=== PATIENT | male | born 1930 | race Two or more races ===

== ENCOUNTER → 2016-02-28 | Outpatient (CLI) | payer MEDICARE, OTHER ==
[~2016-02-28] MED LIST: ASPI81TA27 PO; CLOP75TA28 PO; DUTA0.5C11 PO; OLMETAB9 PO
[2016-02-28 10:15] VITALS: BP 148/84
[2016-02-28 14:44] LABS: Basophils # (auto) 0.1 uL; Basophils % (auto) 0.9 % (0.0-2.0); Eosinophils # (auto) 0.3 uL; Eosinophils % (auto) 4.3 % (0.0-7.0); Hematocrit 42.4 % (41.0-53.0); Hemoglobin 13.6 g/dL (13.5-17.5); Lymphocytes # (auto) 1.4 uL; Mean Corpuscular Hemoglobin 30.2 pg (28.0-32.0); Mean Corpuscular Hgb Conc. 32.2 g/dL (32.0-36.0); Mean Corpuscular Volume 93.7 fL (80.0-100.0); Mean Platelet Volume 10.1 fL (7.4-10.4); Monocytes # (auto) 0.6 uL; Monocytes % (auto) 8.4 % (0.0-12.0); Neutrophils # (auto) 4.3 uL; Neutrophils % (auto) 64.4 % (37.0-80.0); Platelet Count (auto) 215 10^3/uL (140-450); Red Cell Distribution Width 12.7 % (11.6-16.0); White Blood Cell 6.6 10^3/uL (4.4-10.8)
[2016-02-28 14:50] LABS: Partial Thromboplastin Time 27.1 sec (22.64-33.71); Prothrombin Time 10.3 sec (9.37-12.3)
[2016-02-28 15:12] LABS: BUN/Creatinine Ratio 19.4; Potassium 4.9 mmol/L (3.5-5.1)
== END | disposition home or self-care (01) ==
LOC: Rad HDHVI 09:58
PROVIDERS: ATTEND Internal Medicine Cardiovascular Disease
DX: I10 Essential (primary) hypertension (principal); D64.9 Anemia, unspecified; R79.1 Abnormal coagulation profile
CPT/HCPCS: 36415; 71020; 80048; 85025; 85610; 85730; G0463

== ENCOUNTER 2016-03-02 06:44 | Day surgery (SDC) | payer MEDICARE, OTHER ==
[2016-03-02] MEDS ORDERED: LIDOCAINE 2%HCL (LOCAL ANESTH.) INJ 20ML MDV ONE (07:19)
[2016-03-02] MEDS ORDERED: IOHEXOL 350 MG/ML 100ML IJ ONE (07:19)
[2016-03-02] MEDS ORDERED: fentaNYL CITRATE 100 MCG/2 ML VL ONE (08:48)
[2016-03-02] MEDS ORDERED: ANGIOMAX 250 MG VIAL IV ONE (08:48)
[2016-03-02] MEDS ORDERED: EPTIFIBATIDE INJ (2MG/ML) 10ML VIAL IV ONE (08:49)
[2016-03-02] MEDS ORDERED: MIDAZOLAM HCL 1MG/1ML-2 ML VIAL ONE (08:49)
[2016-03-02] MEDS ORDERED: SODIUM CHL 0.9% 0 ML ONE (08:49)
== END 2016-03-02 11:55 | disposition home or self-care (01) ==
LOC: CATH 06:44
PROVIDERS: ATTEND Internal Medicine Cardiovascular Disease
DX: R94.39 Abnormal result of other cardiovascular function study (principal); I10 Essential (primary) hypertension; E78.5 Hyperlipidemia, unspecified; J44.9 Chronic obstructive pulmonary disease, unspecified; Z98.62 Peripheral vascular angioplasty status
CPT/HCPCS: 93458; C1760; C1894; J1644; J2250; J3010; J7030; Q9967; 99152

== ENCOUNTER → 2016-05-17 | Outpatient (CLI) | payer MEDICARE, OTHER ==
[~2016-05-17] MED LIST changes: +TESTOSTERONE CYPIONATE 100 MG/0.5ML 10mLMDV HEART CENTER IM ONE; +TESTOSTERONE CYPIONATE 200 MG/ML 1ML VIAL IM ONE
[2016-05-17 11:30] VITALS: BP 129/77
[2016-05-17 12:00] VITALS: BP 150/80
== END | disposition home or self-care (01) ==
LOC: CHF HDHVI 11:24
PROVIDERS: ATTEND Internal Medicine Cardiovascular Disease
DX: E29.1 Testicular hypofunction (principal); I11.0 Hypertensive heart disease with heart failure; I50.9 Heart failure, unspecified; R07.9 Chest pain, unspecified; E78.5 Hyperlipidemia, unspecified; E64.9 Sequelae of unspecified nutritional deficiency
CPT/HCPCS: 96372; G0463; J1071

== ENCOUNTER → 2016-07-04 | Outpatient (CLI) | payer MEDICARE, OTHER ==
[~2016-07-04] MED LIST changes: -TESTOSTERONE CYPIONATE 100 MG/0.5ML 10mLMDV HEART CENTER IM ONE; -TESTOSTERONE CYPIONATE 200 MG/ML 1ML VIAL IM ONE
[2016-07-04 14:00] VITALS: BP 143/68
[2016-07-04 14:45] VITALS: BP 140/65
[2016-07-04 16:48] LABS: Urine Bilirubin Negative (Negative); Urine Blood Negative /uL (Negative); Urine Color Yellow (Yellow); Urine Glucose Normal (Normal); Urine Ketone Negative (Negative); Urine Nitrite Negative (Negative); Urine Urobilinogen Normal (Negative)
[2016-07-04 17:02] LABS: Basophils # (auto) 0.1 uL; Eosinophils # (auto) 0.4 uL; Eosinophils % (auto) 5.5 % (0.0-7.0); Hematocrit 40.4 % (41.0-53.0); Hemoglobin 13.8 g/dL (13.5-17.5); Lymphocytes # (auto) 1.8 uL; Lymphocytes % (auto) 25.5 % (10.0-50.0); Mean Corpuscular Hemoglobin 31.5 pg (28.0-32.0); Mean Corpuscular Hgb Conc. 34.2 g/dL (32.0-36.0); Mean Corpuscular Volume 92.3 fL (80.0-100.0); Mean Platelet Volume 9.7 fL (7.4-10.4); Monocytes # (auto) 0.7 uL; Monocytes % (auto) 10.2 % (0.0-12.0); Neutrophils # (auto) 4.1 uL; Neutrophils % (auto) 57.8 % (37.0-80.0); Platelet Count (auto) 246 10^3/uL (140-450); Red Cell Distribution Width 13.6 % (11.6-16.0); White Blood Cell 7.1 10^3/uL (4.4-10.8)
[2016-07-04 17:04] LABS: INR 0.94 (0.9-1.15); Partial Thromboplastin Time 26.8 sec (22.64-33.71); Prothrombin Time 10.1 sec (9.37-12.3)
[2016-07-04 17:16] LABS: Albumin 3.6 g/dL (3.4-5.0); BUN/Creatinine Ratio 16.7; Bilirubin, Direct 0.1 mg/dL (0-0.2); Bilirubin, Total 0.4 mg/dL (0.2-1.0); Calcium 9.2 mg/dL (8.5-10.1); Magnesium 2.3 mg/dL (1.6-2.6); Potassium 4.4 mmol/L (3.5-5.1); Total Protein 7.3 g/dL (6.4-8.2)
== END | disposition home or self-care (01) ==
LOC: Rad HDHVI 13:27
PROVIDERS: ATTEND Internal Medicine Cardiovascular Disease
DX: I10 Essential (primary) hypertension (principal); K74.1 Hepatic sclerosis; E11.9 Type 2 diabetes mellitus without complications; R53.81 Other malaise; R97.20 Elevated prostate specific antigen [PSA]; E03.9 Hypothyroidism, unspecified; D64.9 Anemia, unspecified; E55.9 Vitamin D deficiency, unspecified; R79.1 Abnormal coagulation profile; N39.0 Urinary tract infection, site not specified
CPT/HCPCS: 36415; 71020; 80048; 80061; 80076; 81003; 82306; 83036; 83735; 84153; 84403; 84439; 84443; 85025; 85610; 85730; 93005; 93306; G0463

== ENCOUNTER → 2016-08-14 | Outpatient (CLI) | payer MEDICARE ==
[2016-08-14 16:22] LABS: Basophils # (auto) 0.1 uL; CONDITION Y; Eosinophils # (auto) 0.4 uL; Hematocrit 40.7 % (41.0-53.0); Hemoglobin 13.5 g/dL (13.5-17.5); Lymphocytes # (auto) 1.4 uL; Lymphocytes % (auto) 22.9 % (10.0-50.0); Mean Corpuscular Hemoglobin 31.4 pg (28.0-32.0); Mean Corpuscular Hgb Conc. 33.3 g/dL (32.0-36.0); Mean Corpuscular Volume 94.3 fL (80.0-100.0); Monocytes # (auto) 0.6 uL; Monocytes % (auto) 10.2 % (0.0-12.0); Neutrophils # (auto) 3.7 uL; Neutrophils % (auto) 59.9 % (37.0-80.0); Platelet Count (auto) 232 10^3/uL (140-450); White Blood Cell 6.2 10^3/uL (4.4-10.8)
[2016-08-14 16:36] LABS: BUN/Creatinine Ratio 20.6; Calcium 8.6 mg/dL (8.5-10.1); Potassium 5.3 mmol/L (3.5-5.1)
[2016-08-14 16:42] LABS: Urine Bilirubin Negative (Negative); Urine Blood Negative /uL (Negative); Urine Color Yellow (Yellow); Urine Glucose Normal (Normal); Urine Ketone Negative (Negative); Urine Nitrite Negative (Negative); Urine RBC <1 /hpf (0 - 3); Urine Urobilinogen Normal (Negative); Urine pH 5.5 (5.0-8.0)
[2016-08-14 17:04] LABS: INR 0.94 (0.9-1.15); Partial Thromboplastin Time 27.4 sec (22.64-33.71); Prothrombin Time 10.2 sec (9.37-12.3)
== END | disposition home or self-care (01) ==
LOC: CHF HDHVI 11:14
PROVIDERS: ATTEND Internal Medicine Cardiovascular Disease
DX: Z01.818 Encounter for other preprocedural examination (principal); D53.8 Other specified nutritional anemias; N39.0 Urinary tract infection, site not specified; M79.89 Other specified soft tissue disorders
CPT/HCPCS: 36415; 80048; 81001; 85025; 85610; 85730; 87086

== ENCOUNTER → 2016-10-12 | Outpatient (CLI) | payer MEDICARE ==
[~2016-10-12] MED LIST changes: +TESTOSTERONE CYPIONATE 200 MG/ML 1ML VIAL IM ONE
[2016-10-12 11:30] VITALS: BP 128/64
[2016-10-12 11:45] VITALS: BP 134/64
== END | disposition home or self-care (01) ==
LOC: CHF HDHVI 11:23
PROVIDERS: ATTEND Internal Medicine Cardiovascular Disease
DX: E29.1 Testicular hypofunction (principal)
CPT/HCPCS: 96372; G0463; J1071

== ENCOUNTER → 2016-10-30 | Outpatient (CLI) | payer MEDICARE ==
[~2016-10-30] MED LIST changes: -TESTOSTERONE CYPIONATE 200 MG/ML 1ML VIAL IM ONE
[2016-10-30 10:02] LABS: Basophils # (auto) 0.1 uL; Basophils % (auto) 0.9 % (0.0-2.0); CONDITION Y; Eosinophils # (auto) 0.3 uL; Eosinophils % (auto) 4.4 % (0.0-7.0); Lymphocytes # (auto) 1.7 uL; Lymphocytes % (auto) 24.7 % (10.0-50.0); Mean Corpuscular Hemoglobin 31.6 pg (28.0-32.0); Mean Corpuscular Hgb Conc. 34.2 g/dL (32.0-36.0); Mean Corpuscular Volume 92.6 fL (80.0-100.0); Mean Platelet Volume 9.1 fL (7.4-10.4); Monocytes # (auto) 0.7 uL; Monocytes % (auto) 10.7 % (0.0-12.0); Neutrophils % (auto) 59.3 % (37.0-80.0); Platelet Count (auto) 239 10^3/uL (140-450); Red Cell Distribution Width 13.8 % (11.6-16.0); White Blood Cell 6.7 10^3/uL (4.4-10.8)
[2016-10-30 11:05] LABS: Albumin 3.6 g/dL (3.4-5.0); BUN/Creatinine Ratio 19.6; Bilirubin, Total 0.5 mg/dL (0.2-1.0); Calcium 8.8 mg/dL (8.5-10.1); Potassium 4.3 mmol/L (3.5-5.1); Total Protein 7.4 g/dL (6.4-8.2)
== END | disposition home or self-care (01) ==
LOC: LAB 09:37
DX: D64.9 Anemia, unspecified (principal); M06.9 Rheumatoid arthritis, unspecified; M25.50 Pain in unspecified joint; I10 Essential (primary) hypertension; Z79.899 Other long term (current) drug therapy
CPT/HCPCS: 36415; 80053; 85025; 85652; 86141

== ENCOUNTER → 2017-03-08 | Outpatient (CLI) | payer MEDICARE | END | disposition home or self-care (01) | LOC: Rad HDHVI 10:02 | PROVIDERS: ATTEND Internal Medicine Cardiovascular Disease | DX: I10 Essential (primary) hypertension (principal); E78.00 Pure hypercholesterolemia, unspecified | CPT/HCPCS: 93306 ==

== ENCOUNTER → 2017-03-14 | Outpatient (CLI) | payer MEDICARE ==
[~2017-03-14] VITALS: Ht 30.5 cm; Wt 0.5 kg
[~2017-03-14] MED LIST changes: +ADENOSINE 82 MG in GIVE UN-DILUTED 0 ML IV ONE; +ADENOSINE 90 MG/30 ML INJ IV ONE
[2017-03-14 12:29] LABS: Basophils # (auto) 0.1 uL; Basophils % (auto) 1.2 % (0.0-2.0); Eosinophils # (auto) 0.3 uL; Eosinophils % (auto) 6.4 % (0.0-7.0); Hematocrit 39.5 % (41.0-53.0); Hemoglobin 13.3 g/dL (13.5-17.5); Lymphocytes # (auto) 1.6 uL; Lymphocytes % (auto) 28.4 % (10.0-50.0); Mean Corpuscular Hemoglobin 31.9 pg (28.0-32.0); Mean Corpuscular Hgb Conc. 33.7 g/dL (32.0-36.0); Mean Corpuscular Volume 94.6 fL (80.0-100.0); Monocytes # (auto) 0.7 uL; Monocytes % (auto) 12.9 % (0.0-12.0); Neutrophils # (auto) 2.8 uL; Neutrophils % (auto) 51.1 % (37.0-80.0); Nucleated Red Blood Cells % 0.3 %; Platelet Count (auto) 205 10^3/uL (140-450); Red Blood Cells 4.18 10^6/uL (4.5-5.90); Red Cell Distribution Width 13.2 % (11.8-14.3); White Blood Cell 5.5 10^3/uL (4.4-10.8)
[2017-03-14 12:32] LABS: Urine Blood Negative /uL (Negative); Urine Specific Gravity 1.015 (1.001-1.035)
[2017-03-14 12:39] LABS: Albumin 3.5 g/dL (3.4-5.0); BUN/Creatinine Ratio 15.8; Bilirubin, Total 0.7 mg/dL (0.2-1.0); Calcium 8.9 mg/dL (8.5-10.1); Potassium 4.6 mmol/L (3.5-5.1); Total Protein 7.2 g/dL (6.4-8.2)
[2017-03-15 09:57] LABS: Free T4 (Free Thyroxine) 0.99 ng/dL (0.89-1.76)
== END | disposition home or self-care (01) ==
LOC: Rad HDHVI 08:27
PROVIDERS: ATTEND Internal Medicine Cardiovascular Disease
DX: I10 Essential (primary) hypertension (principal); E29.1 Testicular hypofunction; E78.00 Pure hypercholesterolemia, unspecified; D64.9 Anemia, unspecified; E11.9 Type 2 diabetes mellitus without complications; E03.9 Hypothyroidism, unspecified; E55.9 Vitamin D deficiency, unspecified; R53.81 Other malaise; R97.20 Elevated prostate specific antigen [PSA]; D51.9 Vitamin B12 deficiency anemia, unspecified; N39.0 Urinary tract infection, site not specified
CPT/HCPCS: 36415; 78452; 80053; 80061; 81003; 82306; 82607; 83036; 84439; 84443; 85025; 93005; 96374; 96375; A9500; J0153

== ENCOUNTER → 2017-04-03 | Outpatient (CLI) | payer MEDICARE ==
[~2017-04-03] MED LIST changes: -ADENOSINE 82 MG in GIVE UN-DILUTED 0 ML IV ONE; -ADENOSINE 90 MG/30 ML INJ IV ONE; +IOHEXOL 350 MG/ML 100ML IJ ONE
[2017-04-03 09:22] VITALS: BP 170/88
[2017-04-03 09:38] VITALS: BP 184/74
== END | disposition home or self-care (01) ==
LOC: Rad HDHVI 08:59
PROVIDERS: ATTEND Internal Medicine Cardiovascular Disease
DX: N40.0 Benign prostatic hyperplasia without lower urinary tract symptoms (principal); R97.20 Elevated prostate specific antigen [PSA]; K57.30 Diverticulosis of large intestine without perforation or abscess without bleeding; K40.90 Unilateral inguinal hernia, without obstruction or gangrene, not specified as recurrent
CPT/HCPCS: 74177; 82565; 96374; G0463; Q9967

== ENCOUNTER → 2017-09-25 | Outpatient (CLI) | payer MEDICARE ==
[~2017-09-25] MED LIST changes: -IOHEXOL 350 MG/ML 100ML IJ ONE
== END | disposition home or self-care (01) ==
LOC: LAB 09:32
PROVIDERS: ATTEND Internal Medicine Cardiovascular Disease
DX: C61 Malignant neoplasm of prostate (principal); I10 Essential (primary) hypertension; E78.5 Hyperlipidemia, unspecified; J44.9 Chronic obstructive pulmonary disease, unspecified; Z98.62 Peripheral vascular angioplasty status; Z79.82 Long term (current) use of aspirin; Z88.8 Allergy status to other drugs, medicaments and biological substances
CPT/HCPCS: 84153

== ENCOUNTER → 2017-10-11 | Outpatient (CLI) | payer MEDICARE ==
[2017-10-11 12:00] LABS: Basophils # (auto) 0.1 uL; Basophils % (auto) 0.8 % (0.0-2.0); Eosinophils # (auto) 0.2 uL; Eosinophils % (auto) 2.3 % (0.0-7.0); Hematocrit 42.6 % (41.0-53.0); Hemoglobin 14.5 g/dL (13.5-17.5); Lymphocytes # (auto) 1.3 uL; Lymphocytes % (auto) 16.7 % (10.0-50.0); Mean Corpuscular Hemoglobin 31.7 pg (28.0-32.0); Mean Corpuscular Hgb Conc. 33.9 g/dL (32.0-36.0); Mean Corpuscular Volume 93.4 fL (80.0-100.0); Monocytes # (auto) 0.8 uL; Monocytes % (auto) 10.7 % (0.0-12.0); Neutrophils # (auto) 5.4 uL; Neutrophils % (auto) 69.5 % (37.0-80.0); Platelet Count (auto) 221 10^3/uL (140-450); Red Blood Cells 4.57 10^6/uL (4.5-5.90); Red Cell Distribution Width 13.3 % (11.8-14.3); Urine Blood Negative /uL (Negative); Urine Specific Gravity 1.013 (1.001-1.035); White Blood Cell 7.7 10^3/uL (4.4-10.8)
[2017-10-11 12:34] LABS: Potassium 4.9 mmol/L (3.5-5.1)
[2017-10-11 12:48] LABS: BUN/Creatinine Ratio 20.1
== END | disposition home or self-care (01) ==
LOC: LAB 10:12
PROVIDERS: ATTEND Internal Medicine Cardiovascular Disease
DX: I10 Essential (primary) hypertension (principal); C61 Malignant neoplasm of prostate; E03.9 Hypothyroidism, unspecified; E11.9 Type 2 diabetes mellitus without complications; E55.9 Vitamin D deficiency, unspecified; N39.0 Urinary tract infection, site not specified
CPT/HCPCS: 36415; 80048; 80061; 81003; 82306; 83036; 84403; 84443; 85025

== ENCOUNTER → 2018-03-26 | Outpatient (CLI) | payer MEDICARE | END | disposition home or self-care (01) | LOC: Rad HDHVI 08:13 | PROVIDERS: ATTEND Internal Medicine Cardiovascular Disease | DX: I07.1 Rheumatic tricuspid insufficiency (principal); I10 Essential (primary) hypertension; I20.9 Angina pectoris, unspecified; I35.8 Other nonrheumatic aortic valve disorders | CPT/HCPCS: 93306 ==

== ENCOUNTER → 2018-04-02 | Outpatient (CLI) | payer MEDICARE ==
[~2018-04-02] MED LIST changes: +D5W 5% IV SCH; +DIPYRIDAMOLE (5MG/ML) 10 ML VIAL IV ONE; +DIPYRIDAMOLE IV SCH
[2018-04-02 12:01] LABS: Basophils # (auto) 0.1 uL; Basophils % (auto) 1.5 % (0.0-2.0); Eosinophils # (auto) 0.4 uL; Eosinophils % (auto) 6.6 % (0.0-7.0); Hematocrit 41.8 % (41.0-53.0); Hemoglobin 14.1 g/dL (13.5-17.5); Lymphocytes # (auto) 1.3 uL; Lymphocytes % (auto) 21.2 % (10.0-50.0); Mean Corpuscular Hemoglobin 31.9 pg (28.0-32.0); Mean Corpuscular Hgb Conc. 33.7 g/dL (32.0-36.0); Mean Corpuscular Volume 94.6 fL (80.0-100.0); Monocytes # (auto) 0.6 uL; Monocytes % (auto) 9.3 % (0.0-12.0); Neutrophils # (auto) 3.9 uL; Neutrophils % (auto) 61.4 % (37.0-80.0); Nucleated Red Blood Cells % 0.1 %; Platelet Count (auto) 217 10^3/uL (140-450); Red Blood Cells 4.42 10^6/uL (4.5-5.90); Red Cell Distribution Width 12.6 % (11.8-14.3); White Blood Cell 6.3 10^3/uL (4.4-10.8)
[2018-04-02 12:05] LABS: Urine Blood Negative /uL (Negative); Urine Specific Gravity 1.013 (1.001-1.035)
[2018-04-02 12:10] LABS: Potassium 4.8 mmol/L (3.5-5.1)
[2018-04-02 12:14] LABS: Free T4 (Free Thyroxine) 1.16 ng/dL (0.89-1.76)
[2018-04-02 12:15] LABS: Prostate Specific Antigen 1.21 ng/mL (0.0-4.0)
[2018-04-02 12:20] LABS: Albumin 3.9 g/dL (3.4-5.0); BUN/Creatinine Ratio 24.5; Bilirubin, Total 0.5 mg/dL (0.2-1.0); Calcium 9.2 mg/dL (8.5-10.1); Total Protein 7.7 g/dL (6.4-8.2)
== END | disposition home or self-care (01) ==
LOC: Rad HDHVI 07:56
PROVIDERS: ATTEND Internal Medicine Cardiovascular Disease
DX: E11.9 Type 2 diabetes mellitus without complications (principal); E03.9 Hypothyroidism, unspecified; E55.9 Vitamin D deficiency, unspecified; D51.9 Vitamin B12 deficiency anemia, unspecified; C61 Malignant neoplasm of prostate; N39.0 Urinary tract infection, site not specified; M54.16 Radiculopathy, lumbar region; J45.909 Unspecified asthma, uncomplicated; E29.1 Testicular hypofunction
CPT/HCPCS: 36415; 78452; 80053; 80061; 81003; 82306; 82607; 83036; 84153; 84403; 84439; 84443; 85025; 93005; 96374; 96375; A9500; J1245

== ENCOUNTER → 2018-04-29 | Outpatient (CLI) | payer MEDICARE ==
[~2018-04-29] MED LIST changes: -D5W 5% IV SCH; -DIPYRIDAMOLE (5MG/ML) 10 ML VIAL IV ONE; -DIPYRIDAMOLE IV SCH; +MELO1TAB56 PO; +PANC3600 OR; +POM PO; +TIMO0.5S35 EACHEYE
[2018-04-29 10:15] VITALS: BP 140/61
--- NOTE | 2018-04-29 10:15 | NUR ---
CHF CHF PT ARRIVED AT CLINIC O DISTRESS PREOP LEFT HEART CATH EKG DONE V/S OBTAINED PROCEDURE 05/04/18
--- NOTE | 2018-04-29 11:00 | NUR ---
Discharge Instructions See e-MAR for any mediations given with this visit. Patient education given on disease process. Patient verbalized understanding. Previous labs reviewed. Patient discharged in stable condition with after care instructions and follow up appointment.
[2018-04-29 12:32] LABS: Calcium 8.8 mg/dL (8.5-10.1); Potassium 4.3 mmol/L (3.5-5.1)
[2018-04-29 12:33] LABS: INR 0.93 (0.9-1.15); Partial Thromboplastin Time 28.7 sec (23.78-33.04)
[2018-04-29 12:34] LABS: Basophils # (auto) 0.1 uL; Basophils % (auto) 1.5 % (0.0-2.0); Eosinophils # (auto) 0.4 uL; Hematocrit 42.1 % (41.0-53.0); Hemoglobin 14.1 g/dL (13.5-17.5); Lymphocytes # (auto) 1.4 uL; Lymphocytes % (auto) 25.7 % (10.0-50.0); Mean Corpuscular Hemoglobin 31.7 pg (28.0-32.0); Mean Corpuscular Hgb Conc. 33.6 g/dL (32.0-36.0); Mean Corpuscular Volume 94.2 fL (80.0-100.0); Monocytes # (auto) 0.7 uL; Monocytes % (auto) 11.7 % (0.0-12.0); Neutrophils % (auto) 54.1 % (37.0-80.0); Nucleated Red Blood Cells % 0.1 %; Platelet Count (auto) 210 10^3/uL (140-450); Red Blood Cells 4.46 10^6/uL (4.5-5.90); Red Cell Distribution Width 12.9 % (11.8-14.3); White Blood Cell 5.6 10^3/uL (4.4-10.8)
[2018-04-29 12:36] LABS: BUN/Creatinine Ratio 14.2
== END | disposition home or self-care (01) ==
LOC: Rad HDHVI 09:58
PROVIDERS: ATTEND Internal Medicine Cardiovascular Disease
DX: Z01.812 Encounter for preprocedural laboratory examination (principal); I70.0 Atherosclerosis of aorta; D64.9 Anemia, unspecified; R79.1 Abnormal coagulation profile; I10 Essential (primary) hypertension; R94.31 Abnormal electrocardiogram [ECG] [EKG]
CPT/HCPCS: 36415; 80048; 85025; 85610; 85730; 93005; G0463; 71046

== ENCOUNTER 2018-05-02 07:53 | Inpatient (IN) | payer MEDICARE | END 2018-05-04 13:40 | disposition home or self-care (01) | LOC: CATH 07:53 → TELE-CENTR 05-04 00:40 | PROC: B2111ZZ Fluoroscopy of Multiple Coronary Arteries using Low Osmolar Contrast (ICD-10-PCS; principal; ~2018-05-02) | PROC: 02703DZ Dilation of Coronary Artery, One Artery with Intraluminal Device, Percutaneous Approach (ICD-10-PCS; ~2018-05-02) | PROC: B244ZZ3 Ultrasonography of Right Heart, Intravascular (ICD-10-PCS; ~2018-05-02) | PROC: B2141ZZ Fluoroscopy of Right Heart using Low Osmolar Contrast (ICD-10-PCS; ~2018-05-02) | PROC: B41F1ZZ Fluoroscopy of Right Lower Extremity Arteries using Low Osmolar Contrast (ICD-10-PCS; ~2018-05-02) | DX: I25.10 Atherosclerotic heart disease of native coronary artery without angina pectoris (principal); I47.1 Supraventricular tachycardia; R07.9 Chest pain, unspecified; H40.9 Unspecified glaucoma; K86.89 Other specified diseases of pancreas; M19.90 Unspecified osteoarthritis, unspecified site ==

== ENCOUNTER → 2018-05-06 | Outpatient (CLI) | payer MEDICARE ==
[~2018-05-06] MED LIST changes: -ASPI81TA27 PO; -CLOP75TA28 PO; -DUTA0.5C11 PO; -OLMETAB9 PO
== END | disposition home or self-care (01) ==
LOC: Rad HDHVI 13:49
PROVIDERS: ATTEND Internal Medicine Cardiovascular Disease
DX: J32.9 Chronic sinusitis, unspecified (principal)
CPT/HCPCS: 70220

== ENCOUNTER → 2018-06-04 | Outpatient (CLI) | payer MEDICARE ==
[~2018-06-04] VITALS: Ht 180.3 cm; Wt 93.0 kg
[~2018-06-04] MED LIST changes: +CLOP75TA28 PO; +TURM500C3 OR
[2018-06-04 10:00] VITALS: BP 122/56
[2018-06-04 10:30] VITALS: BP 132/57
--- NOTE | 2018-06-04 10:30 | NUR ---
IN TO CLINIC FOR PRE-OP FOR PPI ON 06/06/18 Pre-Op Discharge Summary: See e-MAR for any medications given for this visit. Pre-op orders received and carried out per MD of EKG, LABS and chest xrays. Patient given a copy of EKG with instructions to go to [facility] out patient for further follow up care.
[2018-06-04 11:56] LABS: Basophils # (auto) 0.1 uL; Basophils % (auto) 1.1 % (0.0-2.0); Eosinophils # (auto) 0.4 uL; Eosinophils % (auto) 6.8 % (0.0-7.0); Hematocrit 39.6 % (41.0-53.0); Hemoglobin 13.2 g/dL (13.5-17.5); Lymphocytes # (auto) 1.6 uL; Mean Corpuscular Hemoglobin 31.2 pg (28.0-32.0); Mean Corpuscular Hgb Conc. 33.3 g/dL (32.0-36.0); Mean Corpuscular Volume 93.4 fL (80.0-100.0); Monocytes # (auto) 0.7 uL; Monocytes % (auto) 10.9 % (0.0-12.0); Neutrophils # (auto) 3.6 uL; Neutrophils % (auto) 56.2 % (37.0-80.0); Nucleated Red Blood Cells % 0.1 %; Platelet Count (auto) 199 10^3/uL (140-450); Red Blood Cells 4.24 10^6/uL (4.5-5.90); Red Cell Distribution Width 12.6 % (11.8-14.3); White Blood Cell 6.4 10^3/uL (4.4-10.8)
[2018-06-04 12:05] LABS: INR 0.94 (0.9-1.15); Partial Thromboplastin Time 27.7 sec (23.78-33.04); Potassium 4.4 mmol/L (3.5-5.1); Prothrombin Time 10.1 sec (9.27-12.13)
[2018-06-04 12:12] LABS: BUN/Creatinine Ratio 17.5; Calcium 8.8 mg/dL (8.5-10.1)
== END | disposition home or self-care (01) ==
LOC: Rad HDHVI 09:58
PROVIDERS: ATTEND Internal Medicine Cardiovascular Disease
DX: Z01.812 Encounter for preprocedural laboratory examination (principal); I11.9 Hypertensive heart disease without heart failure; D64.9 Anemia, unspecified; R79.1 Abnormal coagulation profile
CPT/HCPCS: 36415; 71046; 80048; 85025; 85610; 85730; 93005; G0463

== ENCOUNTER 2018-06-06 09:22 | Inpatient (IN) | payer MEDICARE ==
[~2018-06-06] VITALS: Ht 180.3 cm; Wt 93.0 kg
[2018-06-06] MEDS ORDERED: LIDOCAINE 2%HCL (LOCAL ANESTH.) INJ 20ML MDV ONE (11:05)
[2018-06-06] MEDS ORDERED: ceFAZolin 1GM/50ML 50 ML IV ONE (11:06)
[2018-06-06] MEDS ORDERED: VANCOMYCIN 1GM/250ML 250 ML IV ONE (11:11)
[2018-06-06] MEDS ORDERED: fentaNYL CITRATE 100 MCG/2 ML VL ONE (11:11)
[2018-06-06] MEDS ORDERED: VANCOMYCIN HCL 1000 MG VL ONE (11:11)
[2018-06-06] MEDS ORDERED: MIDAZOLAM HCL 1MG/1ML-2 ML VIAL ONE (11:11)
[2018-06-06] MEDS ORDERED: IOHEXOL 350 MG/ML 100ML IJ ONE (11:24)
[2018-06-06] MEDS ORDERED: HYDROcodone-ACET 5/325MG TAB PO PRN (12:30)
[2018-06-06] MEDS ORDERED: MORPHINE SULF INJ 2 MG/ML SYRINGE 1ML IV PRN (12:30)
[2018-06-06] MEDS ORDERED: NITROGLYCERIN 0.4 MG SL TAB SL PRN (12:30)
[2018-06-06] MEDS ORDERED: ACETAMINOPHEN 325 MG TAB PO PRN (12:30)
[2018-06-06] MEDS ORDERED: VANCOMYCIN 1GM/250ML 250 ML IV SCH (12:30)
--- NOTE | 2018-06-06 17:40 | NUR ---
Report received from . SAHLEY VANCE brought to bed following PACEMAKER INSERTION, on equipment monitor phototypesetting and portable oxygen. Patient transfered to unit bed, connected to color television console monitor # and ON ROOM AIR. INSERTION site assessed for any bleeding, redness or swelling. Patient instructed calling for assist as needed. All questions and concerns addressed, patient verbalized understanding of all education and instruction. Will continue to monitor. NOTE:
--- NOTE | 2018-06-06 19:28 | NUR ---
OPENING NOTES RECEIVED REPORT FROM DAYSMAFT NURSE. PT IS A/OX4 WITH NO S/S OF DISTRESS NOR PAIN. PT IS IN BED WITH ARM SLING ON LEFT ARM. DRESSING FROM PACEMAKER INSERTION IS CLEAN, DRY, AND INTACT WITH ICE PACK ON INSERTION SITE. BED IS IN LOWEST POSITION WITH SIDE RAILS UP X 2. BED BRAKES ARE LOCKED AND HOB IS 30 DEGREES. WILL CONTINUE TO MONITOR Q 1HR.
--- NOTE | 2018-06-06 19:42 | NUR ---
END OF SHIFT NOTE PATIENT RESTING COMFORTABLY IN BED AT THIS TIME. NO S/S OF DISTRESS OR SOB NOTED. BED IN LOWEST LOCKED POSITION, CALL LIGHT WITHIN REACH. CARE ENDORSED TO NOC RN.
[2018-06-06 22:00] VITALS: BP 132/75
[2018-06-06] MEDS: TIMOLOL MAL 0.5% OPTH(EYE) SOL 5ML OP SCH (22:00)
[2018-06-07 05:11] VITALS: BP 128/57
--- NOTE | 2018-06-07 07:37 | NUR ---
closing notes left upper chest incisional dressing clean, dry and intact. Endorse care to day shift nurselisa.
--- NOTE | 2018-06-07 08:06 | NUR ---
Opening Note Assumed pt care this AM./ Pt is sitting quietly in room. States he is not in any pain., No s/s of distress or SOB. Discussed POC with patient. Will continue to monitor for changes Q1hr and PRN.
[2018-06-07 09:00] VITALS: BP 133/68
[2018-06-07] MEDS ORDERED: VANCOMYCIN 1GM/250ML 250 ML IV ONE (09:15)
[2018-06-07] MEDS: TIMOLOL MAL 0.5% OPTH(EYE) SOL 5ML OP SCH (09:42)
[2018-06-07] MEDS ORDERED: MOBIC 15 MG PO SCH (10:00)
[2018-06-07 13:00] VITALS: BP 123/62
[2018-06-07 15:00] VITALS: BP 133/68
--- NOTE | 2018-06-07 16:08 | NUR ---
PAGE OUT TO . AWAITING RESPONSE FROM DR BARRAGAN TO CLARIFY PLAVIX ORDERS FOR CONTINUATION. AWAITING RESPONSE.
--- NOTE | 2018-06-07 16:12 | NUR ---
RECEIVED RESPONSE FROM MD RECEIVED RESPONSE FROM DR BARRAGAN. OK TO CONTINUE PLAVIX TOMORROW. PATIENT VERBALIZED UNDERSTANDING. WILL DISCHARGE PATIENT ORDERED.
--- NOTE | 2018-06-07 16:20 | NUR ---
DISCHARGED PATIENT DISCHARGED HOME VIA WHEELCHAIR TO [facility]IVATE [facility]LE AFTER ALL DISCHARGE INSTRUCTIONS GIVEN AND ALL QUESTIONS AND CONCERNS ADDRESSED. IV WAS REMOVED USING CLEAN STERILE TECHNIQUE, CATHETER INTACT UPON REMOVAL. PRESSURE DRESSING APPLIED. TELE REMOVED, CLEANED AND RETURNED TO CHRISTIANO. PATIENT SHOWED NO S/S OF DISTRESS OR SOB NOTED UPON DISCHARGE.
== END 2018-06-07 16:20 | disposition home or self-care (01) | DRG 244 ==
LOC: CATH 09:22 → TELE-WESTW 17:59
PROVIDERS: ADMIT Internal Medicine Cardiovascular Disease; ATTEND Internal Medicine Cardiovascular Disease
PROC: 0JH606Z Insertion of Pacemaker, Dual Chamber into Chest Subcutaneous Tissue and Fascia, Open Approach (ICD-10-PCS; principal; 2018-06-06)
PROC: 02HK3JZ Insertion of Pacemaker Lead into Right Ventricle, Percutaneous Approach (ICD-10-PCS; 2018-06-06)
PROC: 02H63JZ Insertion of Pacemaker Lead into Right Atrium, Percutaneous Approach (ICD-10-PCS; 2018-06-06)
DX: I49.5 Sick sinus syndrome (principal); I10 Essential (primary) hypertension; E78.5 Hyperlipidemia, unspecified; R55 Syncope and collapse; M19.90 Unspecified osteoarthritis, unspecified site; K57.90 Diverticulosis of intestine, part unspecified, without perforation or abscess without bleeding; I95.9 Hypotension, unspecified; Z88.7 Allergy status to serum and vaccine; Z88.8 Allergy status to other drugs, medicaments and biological substances
CPT/HCPCS: 33208; 36415; 71045; 71046; 80048; 85025; 85610; 85730; 93005; 99152; C1785; G0378; G0463; J0690; J2250

== ENCOUNTER → 2018-07-19 | Outpatient (CLI) | payer MEDICARE | END | disposition home or self-care (01) | LOC: Rad HDHVI 13:17 | PROVIDERS: ATTEND Internal Medicine | DX: M16.11 Unilateral primary osteoarthritis, right hip (principal) ==

== ENCOUNTER → 2019-02-20 | Outpatient (CLI) | payer MEDICARE | END | disposition home or self-care (01) | LOC: LAB 10:17 | PROVIDERS: ATTEND Internal Medicine Cardiovascular Disease | DX: R97.20 Elevated prostate specific antigen [PSA] (principal) | CPT/HCPCS: 84153 ==

== ENCOUNTER → 2019-03-11 | Outpatient (CLI) | payer MEDICARE | END | disposition home or self-care (01) | LOC: Rad HDHVI 08:27 | PROVIDERS: ATTEND Internal Medicine Cardiovascular Disease | DX: M47.896 Other spondylosis, lumbar region (principal); I70.0 Atherosclerosis of aorta; R10.30 Lower abdominal pain, unspecified; M48.061 Spinal stenosis, lumbar region without neurogenic claudication | CPT/HCPCS: 72131 ==

== ENCOUNTER → 2019-03-19 | Outpatient (CLI) | payer MEDICARE | END | disposition home or self-care (01) | LOC: Rad HDHVI 12:55 | PROVIDERS: ATTEND Internal Medicine Cardiovascular Disease | DX: I08.8 Other rheumatic multiple valve diseases (principal); I70.203 Unspecified atherosclerosis of native arteries of extremities, bilateral legs; M25.569 Pain in unspecified knee; M79.609 Pain in unspecified limb; I10 Essential (primary) hypertension; I25.10 Atherosclerotic heart disease of native coronary artery without angina pectoris; I47.9 Paroxysmal tachycardia, unspecified | CPT/HCPCS: 93306; 93925; 93926 ==

== ENCOUNTER → 2019-03-21 | Outpatient (CLI) | payer MEDICARE ==
[~2019-03-21] VITALS: Ht 180.3 cm; Wt 93.4 kg
[~2019-03-21] MED LIST changes: +ASPI-404 PO; +D5W 5% IV SCH; +DIPYRIDAMOLE (5MG/ML) 10 ML VIAL IV ONE; +DIPYRIDAMOLE IV SCH; -TURM500C3 OR; +TURM500C3 PO
[2019-03-21 12:03] LABS: Urine Blood Negative /uL (Negative); Urine Specific Gravity 1.013 (1.001-1.035)
[2019-03-21 12:04] LABS: Basophils # (auto) 0.1 uL; Basophils % (auto) 1.6 % (0.0-2.0); Eosinophils # (auto) 0.4 uL; Eosinophils % (auto) 6.8 % (0.0-7.0); Hematocrit 37.2 % (41.0-53.0); Hemoglobin 12.6 g/dL (13.5-17.5); Lymphocytes # (auto) 1.2 uL; Lymphocytes % (auto) 21.4 % (10.0-50.0); Mean Corpuscular Hemoglobin 31.9 pg (28.0-32.0); Mean Corpuscular Hgb Conc. 33.9 g/dL (32.0-36.0); Mean Corpuscular Volume 94.1 fL (80.0-100.0); Monocytes # (auto) 0.8 uL; Monocytes % (auto) 13.1 % (0.0-12.0); Neutrophils # (auto) 3.3 uL; Neutrophils % (auto) 57.1 % (37.0-80.0); Nucleated Red Blood Cells % 0.1 %; Platelet Count (auto) 215 10^3/uL (140-450); Red Blood Cells 3.95 10^6/uL (4.5-5.90); Red Cell Distribution Width 13.1 % (11.8-14.3); White Blood Cell 5.8 10^3/uL (4.4-10.8)
[2019-03-21 12:16] LABS: Albumin 3.6 g/dL (3.4-5.0); Calcium 9.3 mg/dL (8.5-10.1); Potassium 4.6 mmol/L (3.5-5.1)
[2019-03-21 12:22] LABS: BUN/Creatinine Ratio 19.4; Bilirubin, Total 0.5 mg/dL (0.2-1.0); Total Protein 7.3 g/dL (6.4-8.2)
[2019-03-21 12:23] LABS: Prostate Specific Antigen 1.73 ng/mL (0.0-4.0)
== END | disposition home or self-care (01) ==
LOC: Rad HDHVI 08:18
PROVIDERS: ATTEND Internal Medicine Cardiovascular Disease
DX: I25.10 Atherosclerotic heart disease of native coronary artery without angina pectoris (principal); E03.9 Hypothyroidism, unspecified; K90.9 Intestinal malabsorption, unspecified; C61 Malignant neoplasm of prostate; E29.1 Testicular hypofunction; N39.0 Urinary tract infection, site not specified; D51.9 Vitamin B12 deficiency anemia, unspecified; I73.9 Peripheral vascular disease, unspecified; M19.90 Unspecified osteoarthritis, unspecified site; I10 Essential (primary) hypertension; Z79.899 Other long term (current) drug therapy; Z95.0 Presence of cardiac pacemaker
CPT/HCPCS: 36415; 78452; 80053; 80061; 81003; 82306; 82607; 83036; 84153; 84403; 84436; 84443; 85025; 93005; 96374; 96375; A9500; J1245; J7060

== ENCOUNTER → 2019-04-14 | Outpatient (CLI) | payer MEDICARE ==
[~2019-04-14] MED LIST changes: -D5W 5% IV SCH; -DIPYRIDAMOLE (5MG/ML) 10 ML VIAL IV ONE; -DIPYRIDAMOLE IV SCH
[2019-04-14 10:00] VITALS: BP 139/64
[2019-04-14 10:55] VITALS: BP 158/70
--- NOTE | 2019-04-14 10:55 | NUR ---
Pre-Op Discharge Summary: See e-MAR for any medications given for this visit. Pre-op orders received and carried out per MD of EKG, LABS and chest xrays. Patient given a copy of EKG with instructions to go to [facility] out patient for further follow up care.
[2019-04-14 12:05] LABS: Basophils # (auto) 0.1 uL; Eosinophils # (auto) 0.2 uL; Eosinophils % (auto) 3.3 % (0.0-7.0); Hematocrit 39.1 % (41.0-53.0); Hemoglobin 13.1 g/dL (13.5-17.5); Lymphocytes # (auto) 1.3 uL; Lymphocytes % (auto) 19.1 % (10.0-50.0); Mean Corpuscular Hemoglobin 31.7 pg (28.0-32.0); Mean Corpuscular Hgb Conc. 33.4 g/dL (32.0-36.0); Monocytes # (auto) 0.8 uL; Monocytes % (auto) 11.5 % (0.0-12.0); Neutrophils # (auto) 4.3 uL; Neutrophils % (auto) 65.1 % (37.0-80.0); Platelet Count (auto) 247 10^3/uL (140-450); Red Blood Cells 4.12 10^6/uL (4.5-5.90); White Blood Cell 6.5 10^3/uL (4.4-10.8)
[2019-04-14 12:09] LABS: Potassium 4.4 mmol/L (3.5-5.1)
[2019-04-14 12:11] LABS: BUN/Creatinine Ratio 13.6
[2019-04-14 12:20] LABS: INR 1.01 (0.9-1.15); Partial Thromboplastin Time 27.1 sec (23.64-32.05)
== END | disposition home or self-care (01) ==
LOC: Rad HDHVI 09:52
PROVIDERS: ATTEND Internal Medicine Cardiovascular Disease
DX: Z01.812 Encounter for preprocedural laboratory examination (principal); I70.0 Atherosclerosis of aorta
CPT/HCPCS: 36415; 71046; 80048; 85025; 85610; 85730; 93005; G0463

== ENCOUNTER 2019-08-21 21:53 | Inpatient (IN) | payer MEDICARE ==
[~2019-08-21] VITALS: Ht 180.3 cm; Wt 99.8 kg
[~2019-08-21 21:53] MED LIST changes: -ASPI-404 PO; +ASPI-543 PO; -PANC3600 OR
[2019-08-21 22:30] LABS: Basophils # (auto) 0.1 10 ^3/uL (0-0.2); Basophils % (auto) 0.8 % (0.0-2.0); Eosinophils # (auto) 0.3 10 ^3/uL (0-0.8); Eosinophils % (auto) 4.3 % (0.0-7.0); Hematocrit 37.2 % (41.0-53.0); Hemoglobin 12.7 g/dL (13.5-17.5); Lymphocytes # (auto) 1.2 10 ^3/uL (0.4-5.4); Lymphocytes % (auto) 19.1 % (10.0-50.0); Mean Corpuscular Hemoglobin 32.6 pg (28.0-32.0); Mean Corpuscular Hgb Conc. 34.2 g/dL (32.0-36.0); Mean Corpuscular Volume 95.3 fL (80.0-100.0); Monocytes # (auto) 0.7 10 ^3/uL (0-1.3); Monocytes % (auto) 12.2 % (0.0-12.0); Neutrophils # (auto) 3.9 10 ^3/uL (1.6-8.6); Neutrophils % (auto) 63.6 % (37.0-80.0); Platelet Count (auto) 209 10^3/uL (140-450); Red Blood Cells 3.91 10^6/uL (4.5-5.90); White Blood Cell 6.1 10^3/uL (4.4-10.8)
[2019-08-21 22:46] LABS: Partial Thromboplastin Time 28.9 sec (23.64-32.05)
[2019-08-21 22:47] LABS: Albumin 3.6 g/dL (3.4-5.0); Calcium 9.2 mg/dL (8.5-10.1); Potassium 4.1 mmol/L (3.5-5.1)
[2019-08-21 22:53] LABS: BUN/Creatinine Ratio 20.2; Bilirubin, Total 0.8 mg/dL (0.2-1.0); Total Protein 7.3 g/dL (6.4-8.2)
[2019-08-21] MEDS ORDERED: MORPHINE SULFATE 4 MG/ML SYR/VIAL IV ONE (23:00)
[2019-08-21] MEDS ORDERED: ONDANSETRON HCL 4 MG/2 ML VIAL IV ONE (23:00)
[2019-08-22] MEDS ORDERED: IOHEXOL 300 MG/ML 100ML BOTTLE IJ ONE (02:15)
[2019-08-22] MEDS ORDERED: ONDANSETRON HCL 4 MG/2 ML VIAL IV PRN (08:15)
[2019-08-22] MEDS: SODIUM CHLORIDE 0.9% 1,000 ML IV SCH ×2 (09:14→22:35)
[2019-08-22] MEDS: HYDROmorphone HCL 2 MG/ML VL IV PRN ×2 (09:14→22:36)
[2019-08-22] MEDS ORDERED: PIPERACILLIN-TAZO 4.5GM 100 ML IV ONE (09:15)
[2019-08-22] MEDS: PANTOPRAZOLE 40 MG/10 ML VIAL INJ IV SCH (09:37)
[2019-08-22] MEDS: ENOXAPARIN SOD 60 MG/0.6 ML SYRINGE SC SCH ×2 (10:00→20:21)
--- NOTE | 2019-08-22 12:25 | NUR ---
MS admit from [facility] admitted to [facility] after SBAR received. Patient oriented to Anya Melo RN, unit, room, bed, and unit policies regarding patient care and visiting hours. Patient weighed by bed scale and encouraged to call if he needs something. All questions and concerns addressed, patient verbalized understanding. Note: Patient on NPO.
[2019-08-22 12:30] VITALS: BP 137/55
[2019-08-22 13:00] VITALS: BP 139/64
--- NOTE | 2019-08-22 14:30 | NUR ---
Informed Dr. Vasquez that patient has no diet order today; Dr. Myles put an order for Lap Niki scheduled tomorrow, August 23, 2019 at 0900 am. Waiting for MD to call back.
--- NOTE | 2019-08-22 14:55 | NUR ---
Called Pharmacy, Zosyn IV not available in the Pyxis.
--- NOTE | 2019-08-22 15:00 | NUR ---
Copy of order for Lap possible open liliya scheduled tomorrow, August [address] Myles and face sheet given to Oscar Dean.
--- NOTE | 2019-08-22 15:35 | NUR ---
Dr. Vasquez ordered Clear Liquid Diet; NPO after midnight.
--- NOTE | 2019-08-22 15:46 | NUR ---
Called Pharmacy again for the Zosyn IV.
[2019-08-22] MEDS: PIPERACILLIN-TAZO 4.5GM 100 ML IV SCH ×2 (15:55→22:35)
[2019-08-22 17:00] VITALS: BP 137/55
[2019-08-22 22:00] VITALS: BP 144/71
[2019-08-23 05:00] VITALS: BP 128/57
[2019-08-23] MEDS: PIPERACILLIN-TAZO 4.5GM 100 ML IV SCH ×2 (06:27→14:58)
[2019-08-23 09:00] VITALS: BP 135/75
[2019-08-23] MEDS: PANTOPRAZOLE 40 MG/10 ML VIAL INJ IV SCH (09:29)
[2019-08-23] MEDS: ENOXAPARIN SOD 60 MG/0.6 ML SYRINGE SC SCH (09:29)
[2019-08-23] MEDS ORDERED: SODIUM CHL 3% 500 ML IV ONE (11:00)
--- NOTE | 2019-08-23 11:50 | NUR ---
GI Consult Dr. Nelson at bedside.
[2019-08-23 12:12] LABS: Basophils # (auto) 0.1 10 ^3/uL (0-0.2); Basophils % (auto) 0.9 % (0.0-2.0); Eosinophils # (auto) 0.2 10 ^3/uL (0-0.8); Eosinophils % (auto) 2.6 % (0.0-7.0); Hematocrit 34.4 % (41.0-53.0); Hemoglobin 11.7 g/dL (13.5-17.5); Lymphocytes # (auto) 0.9 10 ^3/uL (0.4-5.4); Lymphocytes % (auto) 16.2 % (10.0-50.0); Mean Corpuscular Hemoglobin 32.8 pg (28.0-32.0); Mean Corpuscular Volume 96.5 fL (80.0-100.0); Monocytes # (auto) 0.7 10 ^3/uL (0-1.3); Monocytes % (auto) 11.3 % (0.0-12.0); Platelet Count (auto) 190 10^3/uL (140-450); Red Blood Cells 3.56 10^6/uL (4.5-5.90); Red Cell Distribution Width 13.3 % (11.8-14.3); White Blood Cell 5.8 10^3/uL (4.4-10.8)
[2019-08-23 12:28] LABS: Albumin 2.9 g/dL (3.4-5.0); Calcium 8.2 mg/dL (8.5-10.1); Potassium 4.4 mmol/L (3.5-5.1)
[2019-08-23 12:33] LABS: BUN/Creatinine Ratio 12.3; Bilirubin, Total 0.8 mg/dL (0.2-1.0); Total Protein 6.2 g/dL (6.4-8.2)
[2019-08-23 13:00] VITALS: BP 128/53
--- NOTE | 2019-08-23 15:00 | NUR ---
IV insertion Need second line to administer Zosyn. N/S 3% running in previous IV. As per pharmacy, no data to suggest that they are compatible. IV access obtained, via clean sterile technique by inserting 22 gauge catheter at left forearm after 1 attempt(s). IV secured properly. No trauma to site. Patient tolerated well.
[2019-08-23] MEDS: SODIUM CHLORIDE 0.9% 1,000 ML IV SCH (15:01)
[2019-08-23 17:00] VITALS: BP 151/79
[2019-08-23] MEDS: PIPERACILLIN-TAZOB 2.25GM 50 ML IV SCH ×2 (17:56→23:29)
--- NOTE | 2019-08-23 19:55 | NUR ---
OPENING SHIFT NOTE PT IS RESTING IN BED WITH EYES OPEN AND RESP RATE IS EVEN AND UNLABORED. NO S/S OF ANY DISTRESS NOTED AT THIS TIME. POC DISCUSSED WITH PT AND PT VERBALIZES UNDERSTANDING. BED IS LOW, WHEELS ARE LOCKED, AND CALL LIGHT IS WITH IN REACH.
--- NOTE | 2019-08-23 19:56 | NUR ---
PT ASKING FOR SLEEP AID, HOME B/P MEDS, AND NASAL SPRAY. DR BARRAGAN PAGED AT THIS TIME.
--- NOTE | 2019-08-23 19:59 | NUR ---
DR BARRAGAN RETURNED PAGE AND NEW ORDERS RECEIVED AT THIS TIME. SEE WRITTEN ORDERS.
[2019-08-23] MEDS ORDERED: amLODIPine BESYLATE 5 MG TAB PO ONE (20:30)
[2019-08-23] MEDS ORDERED: HCTZ 25 MG TAB PO ONE (20:30)
--- NOTE | 2019-08-23 21:46 | NUR ---
COVID-19 SWAB SENT TO LAB NOW
[2019-08-23 22:00] VITALS: BP 125/54
[2019-08-23] MEDS: OXYMETAZOLINE HCL 0.05 % NASAL SPRAY 15ML EACHNOSTRI SCH (22:00)
[2019-08-24] MEDS: SODIUM CHLORIDE 0.9% 1,000 ML IV SCH ×2 (00:15→14:34)
[2019-08-24] MEDS: TEMAZEPAM 15 MG CAP PO PRN ×2 (00:32→22:18)
[2019-08-24 05:00] VITALS: BP 146/77
[2019-08-24] MEDS: PIPERACILLIN-TAZOB 2.25GM 50 ML IV SCH ×3 (06:16→18:27)
[2019-08-24 09:00] VITALS: BP 145/65
[2019-08-24] MEDS ORDERED: IOHEXOL 300 MG/ML 100ML BOTTLE IJ ONE (09:53)
[2019-08-24] MEDS: amLODIPine BESYLATE 5 MG TAB PO SCH (09:57)
[2019-08-24] MEDS: PANTOPRAZOLE 40 MG/10 ML VIAL INJ IV SCH (09:57)
[2019-08-24] MEDS: HCTZ 25 MG TAB PO SCH (09:57)
[2019-08-24] MEDS: OXYMETAZOLINE HCL 0.05 % NASAL SPRAY 15ML EACHNOSTRI SCH ×2 (10:00→22:18)
[2019-08-24] MEDS: ENOXAPARIN SOD 60 MG/0.6 ML SYRINGE SC SCH (10:00)
--- NOTE | 2019-08-24 10:15 | NUR ---
Off Unit Patient taken to PACU for ERCP.
[2019-08-24] MEDS ORDERED: MIDAZOLAM HCL 1MG/1ML-2 ML VIAL ONE (12:02)
[2019-08-24] MEDS ORDERED: diphenhdrAMINE HCL 50 MG/1 ML VL ONE (12:09)
[2019-08-24] MEDS ORDERED: METOCLOPRAMIDE HCL 5MG/ml INJ 2ml VIAL ONE (12:09)
[2019-08-24] MEDS ORDERED: GLYCOPYRROLATE 0.2 MG/ML 1ML VIAL ONE (12:09)
[2019-08-24] MEDS ORDERED: LIDOCAINE 1% (LOCAL ANESTH.) PF 5ml SDV ONE (12:11)
[2019-08-24] MEDS ORDERED: PROPOFOL 10 MG/ML 20 ML IV ONE ×2 (12:12→12:13)
[2019-08-24] MEDS ORDERED: fentaNYL CITRATE 100 MCG/2 ML VL ONE (12:16)
[2019-08-24] MEDS ORDERED: ePHEDrine SULFATE 50 MG/ML AMP ONE (12:35)
[2019-08-24] MEDS ORDERED: STERILE WATER 10 ML ONE (12:35)
[2019-08-24] MEDS ORDERED: HYDROmorphone HCL 2 MG/ML VL IV PRN (12:45)
[2019-08-24] MEDS ORDERED: ONDANSETRON HCL 4 MG/2 ML VIAL IV PRN (12:45)
[2019-08-24] MEDS ORDERED: NALOXONE HCL 0.4 MG/ML VIAL IV PRN (12:45)
[2019-08-24 13:00] VITALS: BP 142/58
--- NOTE | 2019-08-24 14:10 | NUR ---
On Unit Patient returned to unit for PACU. Patient is awake but drowsy. No complaints of pain. Call light placed within reach and bed alarm on for safety. Patient encouraged to call for assistance.
--- NOTE | 2019-08-24 15:34 | NUR ---
Nutrition Assessment Notes Please refer to link for full assessment notes. Est Energy needs: 2305-7695 kcals (23-25 kcal/kgBW) d/t Stg 4 CKD Est Protein needs: 55-69 gms/day (0.6-0.75 gm/kgBW) d/t Stg 4 CKD Will continue to monitor and reassess prn. Addendum: 08/24/19 at [address] Amended: Links added.
[2019-08-24 17:00] VITALS: BP 153/78
--- NOTE | 2019-08-24 19:16 | NUR ---
Opening Shift Note Assumed care of patient, awake and alert. No S/S of distress/SOB or pain. Instructed on POC and to call for assist PRN, will continue to monitor for changes Q1hr and PRN. Side rails up x2. Bed locked in lowest position. Call light within reach.
[2019-08-24] MEDS: ACETAMINOPHEN 500 MG TAB PO PRN (22:19)
--- NOTE | 2019-08-24 22:49 | NUR ---
Blood pressure rechecked after giving Tylenol. BP at 138/67 with heart rate of 92 bpm. Will continue to monitor.
[2019-08-25] MEDS: PIPERACILLIN-TAZOB 2.25GM 50 ML IV SCH ×4 (00:06→17:26)
[2019-08-25 00:26] VITALS: BP 160/66
[2019-08-25 05:47] VITALS: BP 140/81
[2019-08-25] MEDS: SODIUM CHLORIDE 0.9% 1,000 ML IV SCH ×2 (05:54→16:15)
--- NOTE | 2019-08-25 07:50 | NUR ---
Opening Shift Note Assumed care of patient, asleep but easily aroused. No S/S of distress/SOB or pain. Instructed on POC and to call for assist PRN, will continue to monitor for changes Q1hr and PRN. NPO status maintained for procedure.
[2019-08-25] MEDS ORDERED: fentaNYL CITRATE 100 MCG/2 ML VL ONE (08:13)
[2019-08-25] MEDS ORDERED: ETOMIDATE (2MG/ML) 20ML VIAL IV ONE (08:13)
[2019-08-25] MEDS ORDERED: MEPERIDINE HCL (50 MG/ML) 1 ML VIAL ONE (08:13)
[2019-08-25] MEDS ORDERED: NEOSTIGMINE 1 MG/ML INJ (10mg/10ML VIAL) ONE ×2 (08:13→10:13)
[2019-08-25] MEDS ORDERED: ROCURONIUM 10MG/ML 10ML VIAL IV ONE (08:13)
[2019-08-25] MEDS ORDERED: SODIUM CHLORIDE LOCK 10 ML ONE (08:13)
[2019-08-25] MEDS ORDERED: MIDAZOLAM HCL 1MG/1ML-2 ML VIAL ONE (08:13)
[2019-08-25] MEDS ORDERED: GLYCOPYRROLATE 0.2 MG/ML 1ML VIAL ONE ×2 (08:13→10:21)
[2019-08-25] MEDS ORDERED: ONDANSETRON HCL 4 MG/2 ML VIAL ONE (08:13)
--- NOTE | 2019-08-25 08:15 | NUR ---
Consent forms Patient signed surgical consents.
--- NOTE | 2019-08-25 08:30 | NUR ---
Off Unit Patient taken to pre-op for surgery.
[2019-08-25] MEDS ORDERED: ceFAZolin 1GM/50ML 50 ML IV ONE (08:54)
[2019-08-25 09:00] VITALS: BP 169/76
[2019-08-25] MEDS ORDERED: MORPHINE SULFATE 4 MG/ML SYR/VIAL IV PRN (09:00)
[2019-08-25] MEDS ORDERED: fentaNYL CITRATE 100 MCG/2 ML VL IV PRN (09:00)
[2019-08-25] MEDS ORDERED: ONDANSETRON HCL 4 MG/2 ML VIAL IV PRN (09:00)
[2019-08-25 09:02] LABS: Potassium 3.9 mmol/L (3.5-5.1)
[2019-08-25 09:08] LABS: BUN/Creatinine Ratio 15.6; Calcium 8.8 mg/dL (8.5-10.1)
[2019-08-25] MEDS ORDERED: fentaNYL CITRATE 5 ML ONE (09:39)
[2019-08-25] MEDS: PANTOPRAZOLE 40 MG/10 ML VIAL INJ IV SCH (10:00)
[2019-08-25] MEDS: amLODIPine BESYLATE 5 MG TAB PO SCH (10:00)
[2019-08-25] MEDS: OXYMETAZOLINE HCL 0.05 % NASAL SPRAY 15ML EACHNOSTRI SCH ×2 (10:00→22:14)
[2019-08-25] MEDS: HCTZ 25 MG TAB PO SCH (10:00)
[2019-08-25] MEDS: ENOXAPARIN SOD 60 MG/0.6 ML SYRINGE SC SCH (10:00)
[2019-08-25] MEDS: HYDROmorphone HCL 2 MG/ML VL IV PRN ×5 (11:13→23:16)
--- NOTE | 2019-08-25 11:20 | NUR ---
Report given to Sybil CARUSO. Patient to be transferred to room 292.
--- NOTE | 2019-08-25 11:28 | NUR ---
RECEIVED REPORT FROM SHADY FUENTES. PATIENT IN OR.
--- NOTE | 2019-08-25 11:35 | NUR ---
PATIENT BACK FROM OR. VITALS STABLE. PATIENT DENIES DISCOMFORT. DRESSING TO RIGHT ABDOMEN, SMALL AMOUNT OF DISCHARGE NOTED. NIKI DRAIN TO RIGHT SIDE DRAINING DARK RED FLUID. BINDER ON, SCD'S ON. WILL CONTINUE TO MONITOR.
[2019-08-25 13:00] VITALS: BP 122/58
--- NOTE | 2019-08-25 15:11 | NUR ---
NIKI DRAIN 15O ML OF DARK SANGUINEOUS FLUID EMPTIED. PATIENT TOLERATED IT WELL. WILL CONTINUE TO MONITOR.
--- NOTE | 2019-08-25 16:30 | NUR ---
NIKI DRAIN DRAINED 120ML OF SANGUINEOUS FLUID.
[2019-08-25 17:00] VITALS: BP 130/69
--- NOTE | 2019-08-25 17:45 | NUR ---
NIKI DRAIN DRAINED 70 ML OF SANGUINEOUS FLUID.
--- NOTE | 2019-08-25 19:00 | NUR ---
Opening Shift Note Assumed care of patient, awake and alert. No S/S of distress/SOB or pain. Instructed on POC and to call for assist PRN, will continue to monitor for changes Q1hr and PRN.
--- NOTE | 2019-08-25 19:14 | NUR ---
NIKI DRAIN EMPTIED 70 ML OF SANGUINEOUS FLUID FROM NIKI DRAIN.
[2019-08-25] MEDS: TEMAZEPAM 15 MG CAP PO PRN (21:16)
[2019-08-25 22:00] VITALS: BP 121/60
--- NOTE | 2019-08-25 23:20 | NUR ---
Medicated for pain
[2019-08-26] MEDS: PIPERACILLIN-TAZOB 2.25GM 50 ML IV SCH ×4 (02:56→18:09)
--- NOTE | 2019-08-26 03:00 | NUR ---
NIKI drain 100ml output dark serous sanguineous
[2019-08-26 05:49] VITALS: BP 138/70
[2019-08-26] MEDS: SODIUM CHLORIDE 0.9% 1,000 ML IV SCH ×2 (05:51→18:55)
[2019-08-26] MEDS: HYDROmorphone HCL 2 MG/ML VL IV PRN ×3 (06:01→21:15)
[2019-08-26 07:25] LABS: Basophils # (auto) 0 10 ^3/uL (0-0.2); Basophils % (auto) 0.5 % (0.0-2.0); Eosinophils # (auto) 0.1 10 ^3/uL (0-0.8); Eosinophils % (auto) 1.1 % (0.0-7.0); Hematocrit 34.1 % (41.0-53.0); Hemoglobin 11.4 g/dL (13.5-17.5); Lymphocytes # (auto) 0.5 10 ^3/uL (0.4-5.4); Lymphocytes % (auto) 7.4 % (10.0-50.0); Mean Corpuscular Hemoglobin 32.9 pg (28.0-32.0); Mean Corpuscular Hgb Conc. 33.4 g/dL (32.0-36.0); Mean Corpuscular Volume 98.4 fL (80.0-100.0); Monocytes # (auto) 0.9 10 ^3/uL (0-1.3); Neutrophils # (auto) 5.8 10 ^3/uL (1.6-8.6); Platelet Count (auto) 197 10^3/uL (140-450); Red Blood Cells 3.47 10^6/uL (4.5-5.90); Red Cell Distribution Width 13.4 % (11.8-14.3); White Blood Cell 7.3 10^3/uL (4.4-10.8)
--- NOTE | 2019-08-26 07:30 | NUR ---
Opening Shift Note Assuming care of patient at this time. Patient is awake and alert. Patient complains of pain. Patient has recently been medicated for pain. Patient shows no signs or symptoms of distress or shortness of breath. Bed is locked and lowered with side rails up x2. Instructed patient on the plan of care for today and to call for assistance as needed. Call light within reach. Will continue to round hourly and as needed.
[2019-08-26 09:00] VITALS: BP 132/61
[2019-08-26] MEDS: OXYMETAZOLINE HCL 0.05 % NASAL SPRAY 15ML EACHNOSTRI SCH ×2 (10:00→23:06)
[2019-08-26] MEDS: HCTZ 25 MG TAB PO SCH (11:06)
[2019-08-26] MEDS: PANTOPRAZOLE 40 MG/10 ML VIAL INJ IV SCH (11:07)
[2019-08-26] MEDS: ENOXAPARIN SOD 60 MG/0.6 ML SYRINGE SC SCH (11:07)
[2019-08-26] MEDS: amLODIPine BESYLATE 5 MG TAB PO SCH (11:07)
[2019-08-26 13:00] VITALS: BP 107/61
--- NOTE | 2019-08-26 14:58 | NUR ---
Nutrition Followup Notes Wt: 90.5 kg Pt was sleeping with no family by bedside. per records pt s/p lap liliya 07/25. pt with no distress noted currently on clear liq diet with no PO recorded yet Est Energy needs: 9124-5346 kcals (23-25 kcal/kgBW) d/t Stg 4 CKD, Est Protein needs: 55-69 gms/day (0.6-0.75 gm/kgBW) d/t Stg 4 CKD. Will continue to monitor and reassess prn. LABS: BUN 26 H, CREAT 1.07 H, ALB 2.9 L. GI: Pt has no BM reported per RN doc BS: 19 low risk, incision at site of sx per RN doc. Please refer to wound assessment report for full details. PES: 1) Increased nutrient needs aeb pt is NPO r/t pt with no PO intake 2) Altered nutrition related lab values aeb elev RFTs. low GFR, (Stg 4), hypocalcemia, elev LFTs, mod hypoalbuminemia r/t current medical condition Comments Will continue to closely monitor pertinent labs, PO intake, and skin status prn. Will followup in 2-3 days 1) Gradually advance pt to oral Cardiac 2gNa,lowfat,lowchol diet when medically feasible and as tolerated. 2) Continue current plan of care
[2019-08-26 16:59] VITALS: BP 136/81
--- NOTE | 2019-08-26 17:53 | NUR ---
Bladder Pressure Patient is complaining of bladder pressure at this time. Patient has had approximately 30mL of dark kacey fluid from portillo. Bladder scan done at this time shows less than 15mL of urine. Will notify
--- NOTE | 2019-08-26 18:27 | NUR ---
MD aware Notified Dr. Vasquez of patient's bladder pressure, urine output, and bladder scan. MD aware. No new orders given at this time.
--- NOTE | 2019-08-26 18:56 | NUR ---
NIKI Drain Removed 50mL of sanguinous drainage from patient's NIKI Drain.
--- NOTE | 2019-08-26 19:00 | NUR ---
Closing Shift Note Patient resting in bed. No distress noted. Report given. Will endorse care to the city manager RN.
--- NOTE | 2019-08-26 19:24 | NUR ---
Opening note Assumed care. Patient awake, alert. Unlabored breathing. POC explained to patient. Patient had 100ml out put in the Baca catheter at he beginning of the shift, patient still complaining of pressure around the pelvic area, he is afraid he may have kidney stones. A bladder scan was performed earlier today and it did not show urinary retention. Will continue to monitor.
[2019-08-26] MEDS ORDERED: SODIUM CHLORIDE 0.9% 500 ML IV ONE ×2 (21:00→23:15)
--- NOTE | 2019-08-26 21:00 | NUR ---
IV insertion X2 IV access obtained, via clean sterile technique by inserting 20 gauge catheter at right wrist after 1 attempt and also another 20 gauge at right forearm. IV secured properly. No trauma to site. Patient tolerated well. IV removal IV DC'd from left AC with clean sterile technique, catheter fully intact. Pressure dressing applied to site. Patient tolerated well.
--- NOTE | 2019-08-26 21:02 | NUR ---
Doctor Pedro called, new order of NS 500ml Bolus, to repeat if output does not improves.
[2019-08-26] MEDS: TEMAZEPAM 15 MG CAP PO PRN (21:15)
--- NOTE | 2019-08-26 21:39 | NUR ---
Family updated on pt status () Family of ASHLEY VANCE updated on patient's status and condition. All questions and concerns addressed. verbalized understanding.
[2019-08-26 22:00] VITALS: BP 131/61
[2019-08-27] MEDS: PIPERACILLIN-TAZOB 2.25GM 50 ML IV SCH ×5 (00:33→23:15)
--- NOTE | 2019-08-27 00:33 | NUR ---
Patient received two Bolus of 500 ML each per order. Catheter still has the same amount of output as when I came on shift at 1900. Will notify Dr Vasquez.
--- NOTE | 2019-08-27 03:17 | NUR ---
New order NS 500Ml bolus + 40mg Lasix IV X one
[2019-08-27] MEDS ORDERED: FUROSEMIDE 40 MG/4 ML VIAL IV ONE (03:30)
[2019-08-27] MEDS ORDERED: SODIUM CHLORIDE 0.9% 500 ML IV ONE (03:30)
--- NOTE | 2019-08-27 04:35 | NUR ---
Urine started to flow, will monitor output closely
[2019-08-27 05:00] VITALS: BP 142/56
--- NOTE | 2019-08-27 07:30 | NUR ---
Opening Shift Note Assuming care of patient at this time. Patient is awake and alert. Patient denies pain. Patient shows no signs or symptoms of distress or shortness of breath. Bed is locked and lowered with side rails up x2. Instructed patient on the plan of care for today and to call for assistance as needed. Call light within reach. Will continue to round hourly and as needed.
[2019-08-27] MEDS: SODIUM CHLORIDE 0.9% 1,000 ML IV SCH ×2 (08:15→21:02)
[2019-08-27 09:00] VITALS: BP 157/88
[2019-08-27] MEDS: OXYMETAZOLINE HCL 0.05 % NASAL SPRAY 15ML EACHNOSTRI SCH ×2 (11:01→21:02)
[2019-08-27] MEDS: PANTOPRAZOLE 40 MG/10 ML VIAL INJ IV SCH (11:02)
[2019-08-27] MEDS: HCTZ 25 MG TAB PO SCH (11:06)
[2019-08-27] MEDS: amLODIPine BESYLATE 5 MG TAB PO SCH (11:06)
[2019-08-27] MEDS: ENOXAPARIN SOD 60 MG/0.6 ML SYRINGE SC SCH (11:07)
[2019-08-27] MEDS: ACETAMINOPHEN 500 MG TAB PO PRN ×3 (11:30→23:17)
[2019-08-27 13:00] VITALS: BP 123/56
--- NOTE | 2019-08-27 14:00 | NUR ---
Short of Breath Notified by lab associate that patient was complaining of feeling short of breath. Upon entering room, patient states he feels like he not getting enough oxygen. Increased oxygen from 2L to 3L, oxygen saturation is 94%. Will continue to assess for signs or symptoms of distress or shortness of breath.
[2019-08-27 14:06] LABS: Basophils # (auto) 0 10 ^3/uL (0-0.2); Basophils % (auto) 0.4 % (0.0-2.0); Eosinophils # (auto) 0.1 10 ^3/uL (0-0.8); Eosinophils % (auto) 1.4 % (0.0-7.0); Hematocrit 28.8 % (41.0-53.0); Hemoglobin 9.7 g/dL (13.5-17.5); Lymphocytes # (auto) 0.5 10 ^3/uL (0.4-5.4); Lymphocytes % (auto) 6.7 % (10.0-50.0); Mean Corpuscular Hemoglobin 32.5 pg (28.0-32.0); Mean Corpuscular Hgb Conc. 33.5 g/dL (32.0-36.0); Mean Corpuscular Volume 97.1 fL (80.0-100.0); Monocytes # (auto) 0.8 10 ^3/uL (0-1.3); Monocytes % (auto) 10.3 % (0.0-12.0); Neutrophils # (auto) 6.1 10 ^3/uL (1.6-8.6); Neutrophils % (auto) 81.2 % (37.0-80.0); Platelet Count (auto) 180 10^3/uL (140-450); Red Blood Cells 2.97 10^6/uL (4.5-5.90); Red Cell Distribution Width 12.8 % (11.8-14.3); White Blood Cell 7.6 10^3/uL (4.4-10.8)
[2019-08-27 14:27] LABS: Albumin 1.9 g/dL (3.4-5.0); Calcium 7.8 mg/dL (8.5-10.1)
[2019-08-27 14:31] LABS: BUN/Creatinine Ratio 9.5; Bilirubin, Total 0.7 mg/dL (0.2-1.0); Total Protein 5.6 g/dL (6.4-8.2)
[2019-08-27 16:37] VITALS: BP 133/68
--- NOTE | 2019-08-27 18:54 | NUR ---
NIKI Drain Removed 40 mL of sanguinous drainage from patient's NIKI Drain.
--- NOTE | 2019-08-27 19:26 | NUR ---
Closing Shift Note Report given. Will endorse care to the night time nanny RN.
[2019-08-27] MEDS: HYDROmorphone HCL 2 MG/ML VL IV PRN (21:03)
[2019-08-27 22:00] VITALS: BP 155/70
[2019-08-27] MEDS: TEMAZEPAM 15 MG CAP PO PRN (23:16)
[2019-08-28 05:00] VITALS: BP 147/68
[2019-08-28] MEDS: PIPERACILLIN-TAZOB 2.25GM 50 ML IV SCH ×4 (06:27→23:33)
--- NOTE | 2019-08-28 07:05 | NUR ---
EFRA Emptied 50cc of serous fluid removed from efra bulb. Bulb depressed and capped.
--- NOTE | 2019-08-28 08:00 | NUR ---
OPENING SHIFT NOTE ASSUMED CARE OF PATIENT AWAKE AND ALERT. NO S/S OF DISTRESS NOTED OR COMPLAINTS OF PAIN. PATIENT UPDATED ON POC FOR THE DAY AND ALL QUESTIONS ANSWERED. BED IS IN LOWEST, LOCKED POSITION WITH SIDE RAILS UP X2 AND CALL LIGHT WITHIN REACH. WILL CONTINUE TO MONITOR Q1H AND PRN.
[2019-08-28 09:00] VITALS: BP 147/79
[2019-08-28] MEDS: PANTOPRAZOLE 40 MG/10 ML VIAL INJ IV SCH (09:32)
[2019-08-28] MEDS: OXYMETAZOLINE HCL 0.05 % NASAL SPRAY 15ML EACHNOSTRI SCH ×2 (09:32→21:23)
[2019-08-28] MEDS: HCTZ 25 MG TAB PO SCH (09:33)
[2019-08-28] MEDS: amLODIPine BESYLATE 5 MG TAB PO SCH (09:33)
[2019-08-28] MEDS: ENOXAPARIN SOD 60 MG/0.6 ML SYRINGE SC SCH (09:33)
--- NOTE | 2019-08-28 10:30 | NUR ---
PHYSICAL THERAPY PATIENT AMBULATING IN THE HALLWAY WITH PHYSICAL THERAPY USING A FWW. NO INCIDENT NOTED, PATIENT TOLERATED WELL.
[2019-08-28] MEDS: SODIUM CHLORIDE 0.9% 1,000 ML IV SCH ×2 (10:59→23:35)
[2019-08-28 13:00] VITALS: BP 146/66
--- NOTE | 2019-08-28 13:42 | NUR ---
Nutrition Followup Notes Wt: 95.5 kg Pt was sitting in chair at bedtime at time of rounds. Pt reports appetite is okay, pt on CLD not a fan of CLD. Pt reports having a BM this morning right before I came in the room. Pt with adequate po intake of CLD from 08/24-08/25 per RN note with an avg po intake of 81%. WIll continue to monitor diet advance and if pt tolerates Est Energy needs: 2589-2454 kcals (23-25 kcal/kgBW) d/t Stg 4 CKD, Est Protein needs: 55-69 gms/day (0.6-0.75 gm/kgBW) d/t Stg 4 CKD. Will continue to monitor and reassess prn. LABS: BUN 37H, Creat 3.9H, Gluc 139H, Alb 1.9L, Ca 7.8L GI: Pt had 1 BM 08/27 per pt and RN doc BS: 19 low risk, incision at site of sx per RN doc. Please refer to wound assessment report for full details. PES: 1) Increased nutrient needs aeb pt is NPO r/t pt with no PO intake 2) Altered nutrition related lab values aeb elev RFTs. low GFR, (Stg 4), hypocalcemia, elev LFTs, mod hypoalbuminemia r/t current medical condition Comments Will continue to closely monitor pertinent labs, PO intake, and skin status prn. Will followup in 3-5 days 1) Gradually advance pt to oral Cardiac 2gNa,lowfat,lowchol diet when medically feasible and as tolerated. 2) Continue current plan of care
[2019-08-28 17:00] VITALS: BP 156/78
[2019-08-28] MEDS: ACETAMINOPHEN 500 MG TAB PO PRN (21:23)
[2019-08-28] MEDS: TEMAZEPAM 15 MG CAP PO PRN (21:23)
[2019-08-28 22:38] VITALS: BP 154/69
[2019-08-28] MEDS: HYDROmorphone HCL 2 MG/ML VL IV PRN (23:34)
[2019-08-29 05:47] VITALS: BP 143/65
[2019-08-29] MEDS: PIPERACILLIN-TAZOB 2.25GM 50 ML IV SCH ×3 (06:03→17:53)
--- NOTE | 2019-08-29 07:38 | NUR ---
EFRA Emptied 50cc of serous fluid removed from efra bulb. Bulb depressed and capped.
--- NOTE | 2019-08-29 08:00 | NUR ---
Received pt resting in bed, call light with in reach, pt has abdominal binder on, NIKI drain to RLQ, mid abdominal incision dressing on, pt reports able to urinate after portillo catheter removed, will continue to monitor pt.
[2019-08-29 09:00] VITALS: BP 155/70
[2019-08-29] MEDS: ENOXAPARIN SOD 60 MG/0.6 ML SYRINGE SC SCH (10:14)
[2019-08-29] MEDS: amLODIPine BESYLATE 5 MG TAB PO SCH (10:14)
[2019-08-29] MEDS: HCTZ 25 MG TAB PO SCH (10:14)
[2019-08-29] MEDS: PANTOPRAZOLE 40 MG/10 ML VIAL INJ IV SCH (10:15)
[2019-08-29] MEDS: OXYMETAZOLINE HCL 0.05 % NASAL SPRAY 15ML EACHNOSTRI SCH ×2 (10:41→22:52)
[2019-08-29 13:00] VITALS: BP 151/62
--- NOTE | 2019-08-29 15:30 | NUR ---
Pt assisted out of bed by physical therapy to [facility], pt had a mod dark brown BM, pt assisted back to bed with mod assistance, call light with in reach, will continue to monitor pt.
[2019-08-29] MEDS: SODIUM CHLORIDE 0.9% 1,000 ML IV SCH (16:16)
--- NOTE | 2019-08-29 16:35 | NUR ---
Pt back from medical lab assistant, v/s taken, BP 136/79, HR 85, pt has a vascular band to rt wrist, as per medical lab assistant nurse start removing air until 1700, will continue to monitor pt. Addendum: 08/29/19 at 1944 by Lara Espinal RN Above documentation done on the wrong pt.
[2019-08-29 18:00] VITALS: BP 151/61
--- NOTE | 2019-08-29 19:45 | NUR ---
Opening Shift Note Assumed care of patient, awake and alert, oriented x 4, follows directions. On oxygen at 2L via NC with even and unlabored respirations. No S/S of distress/SOB. Patient denies nausea. Patient denies any difficulty urinating, using urinal independently. Surgical incision to mid abd clean, dry and intact. Patient reports passing gas. NIKI drain intact to RLQ with minimal serosanguineous drainage, NIKI bulb to suction. Abd binder on. patient turns independently in bed. Bed in lowest locked position with side rails up x 2 and call light within reach. Instructed on POC and to call for assist PRN, will continue to monitor for changes Q1hr and PRN.
[2019-08-29 22:00] VITALS: BP 129/69
[2019-08-29] MEDS: TEMAZEPAM 15 MG CAP PO PRN (22:52)
[2019-08-29] MEDS: HYDROmorphone HCL 2 MG/ML VL IV PRN (23:08)
[2019-08-30] MEDS: PIPERACILLIN-TAZOB 2.25GM 50 ML IV SCH ×4 (00:28→17:00)
[2019-08-30] MEDS: TEMAZEPAM 15 MG CAP PO PRN (00:35)
[2019-08-30] MEDS: SODIUM CHLORIDE 0.9% 1,000 ML IV SCH ×2 (04:49→15:22)
[2019-08-30 05:00] VITALS: BP 131/70
--- NOTE | 2019-08-30 07:10 | NUR ---
Closing Note patient resting in bed with oxygen on at 2L via NC with even and labored respirations, no s/s of distress. Bed in lowest locked position with side rails up x 2 and call light within reach, bed alarm on. Endorsed care to day shift RN.
--- NOTE | 2019-08-30 07:45 | NUR ---
Opening Shift Note Assumed care of patient, awake, alert, and oriented. No S/S of distress/SOB or pain. Bed in lowest/locked position, bed rails up x2, call light within reach. Instructed on POC and to call for assist PRN. Will continue to monitor for changes Q1hr and PRN.
[2019-08-30 09:00] VITALS: BP 119/64
[2019-08-30] MEDS: ENOXAPARIN SOD 60 MG/0.6 ML SYRINGE SC SCH (09:17)
[2019-08-30] MEDS: PANTOPRAZOLE 40 MG/10 ML VIAL INJ IV SCH (09:17)
[2019-08-30] MEDS: HCTZ 25 MG TAB PO SCH (09:18)
[2019-08-30] MEDS: amLODIPine BESYLATE 5 MG TAB PO SCH (09:18)
[2019-08-30] MEDS: OXYMETAZOLINE HCL 0.05 % NASAL SPRAY 15ML EACHNOSTRI SCH ×2 (09:19→22:28)
[2019-08-30 13:00] VITALS: BP 135/64
[2019-08-30 15:45] LABS: Basophils # (auto) 0 10 ^3/uL (0-0.2); Basophils % (auto) 0.6 % (0.0-2.0); Eosinophils # (auto) 0.2 10 ^3/uL (0-0.8); Eosinophils % (auto) 2.3 % (0.0-7.0); Hematocrit 30.6 % (41.0-53.0); Hemoglobin 10.3 g/dL (13.5-17.5); Lymphocytes # (auto) 0.9 10 ^3/uL (0.4-5.4); Lymphocytes % (auto) 11.1 % (10.0-50.0); Mean Corpuscular Hemoglobin 32.8 pg (28.0-32.0); Mean Corpuscular Hgb Conc. 33.8 g/dL (32.0-36.0); Mean Corpuscular Volume 96.9 fL (80.0-100.0); Monocytes # (auto) 1.1 10 ^3/uL (0-1.3); Monocytes % (auto) 14.2 % (0.0-12.0); Neutrophils # (auto) 5.8 10 ^3/uL (1.6-8.6); Neutrophils % (auto) 71.8 % (37.0-80.0); Platelet Count (auto) 322 10^3/uL (140-450); Red Blood Cells 3.16 10^6/uL (4.5-5.90); Red Cell Distribution Width 13.3 % (11.8-14.3)
[2019-08-30 16:04] LABS: Calcium 8.5 mg/dL (8.5-10.1); Potassium 3.5 mmol/L (3.5-5.1)
[2019-08-30 16:07] LABS: BUN/Creatinine Ratio 17.8; Bilirubin, Total 0.4 mg/dL (0.2-1.0); Total Protein 6.4 g/dL (6.4-8.2)
[2019-08-30 16:49] VITALS: BP 143/69
--- NOTE | 2019-08-30 18:50 | NUR ---
NIKI DRAIN EMPTIED APPROXIMATELY 60 ML SANGUINOUS FLUID
[2019-08-30 22:00] VITALS: BP 153/53
[2019-08-30] MEDS: ACETAMINOPHEN 500 MG TAB PO PRN (22:27)
[2019-08-31] MEDS: PIPERACILLIN-TAZOB 2.25GM 50 ML IV SCH ×5 (00:12→23:12)
[2019-08-31] MEDS: HYDROmorphone HCL 2 MG/ML VL IV PRN ×2 (00:12→21:05)
[2019-08-31 05:00] VITALS: BP 131/45
[2019-08-31] MEDS: SODIUM CHLORIDE 0.9% 1,000 ML IV SCH ×3 (05:32→23:12)
[2019-08-31] MEDS: ENOXAPARIN SOD 60 MG/0.6 ML SYRINGE SC SCH (08:59)
[2019-08-31] MEDS: PANTOPRAZOLE 40 MG/10 ML VIAL INJ IV SCH (08:59)
[2019-08-31 09:00] VITALS: BP 143/68
[2019-08-31] MEDS: OXYMETAZOLINE HCL 0.05 % NASAL SPRAY 15ML EACHNOSTRI SCH ×2 (09:00→21:06)
[2019-08-31] MEDS: HCTZ 25 MG TAB PO SCH (09:00)
[2019-08-31] MEDS: amLODIPine BESYLATE 5 MG TAB PO SCH (09:00)
[2019-08-31 13:00] VITALS: BP 124/75
--- NOTE | 2019-08-31 14:39 | NUR ---
Nutrition Followup Notes Wt: 99.2 kg Pt sleeping with no family by bedside. pt is now advanced to regular diet with adequate PO of 1005 x 4 per RN doc Est Energy needs: 4223-7191 kcals (23-25 kcal/kgBW) d/t Stg 4 CKD, Est Protein needs: 55-69 gms/day (0.6-0.75 gm/kgBW) d/t Stg 4 CKD. Will continue to monitor and reassess prn. LABS: BUN 43 H, CREAT 2.42 H, GLU 143 H, ALB 2.0 L. GI: Pt had 1 BM today per RN doc BS: 20 low risk, incision at site of sx per RN doc. Please refer to wound assessment report for full details. PES: 1) Increased nutrient needs aeb pt is NPO r/t pt with no PO intake 2) Altered nutrition related lab values aeb elev RFTs. low GFR, (Stg 4), hypocalcemia, elev LFTs, mod hypoalbuminemia r/t current medical condition Comments Will continue to closely monitor pertinent labs, PO intake, and skin status prn. Will followup in 3-5 days 1) Consider prostat 1 packet bid. 2) Continue current plan of care
--- NOTE | 2019-08-31 16:53 | NUR ---
NIKI DRAIN APPROXIMATELY 50 ML SANGUINOUS FLUID EMPTIED FROM RLQ NIKI DRAIN
[2019-08-31 17:00] VITALS: BP 138/68
--- NOTE | 2019-08-31 19:30 | NUR ---
Opening Shift Note Assumed care of patient, awake and alert. No S/S of distress/SOB or pain. Insructed on POC and to callfor assist PRN, will continue to monitor for changes Q1hr and PRN.
[2019-08-31 22:00] VITALS: BP 137/74
[2019-09-01 05:09] VITALS: BP 134/61
[2019-09-01] MEDS: PIPERACILLIN-TAZOB 2.25GM 50 ML IV SCH ×3 (05:40→17:09)
[2019-09-01 06:43] LABS: BUN/Creatinine Ratio 17.6; Calcium 7.9 mg/dL (8.5-10.1); Potassium 3.3 mmol/L (3.5-5.1)
--- NOTE | 2019-09-01 07:45 | NUR ---
Opening Shift Note Assumed care of patient, awake, alert, and oriented. No S/S of distress/SOB or pain. Patient assisted to chair with minimum assistance, tolerated well, call light within reach. Instructed on POC and to call for assist PRN. Will continue to monitor for changes Q1hr and PRN.
[2019-09-01] MEDS: SODIUM CHLORIDE 0.9% 1,000 ML IV SCH ×2 (08:15→18:34)
--- NOTE | 2019-09-01 08:35 | NUR ---
DR HOOPER SPOKE WITH DR HOOPER RE: PATIENT NIKI DRAIN. PER DR HOOPER: HE WILL SEE THE PATIENT TODAY. WILL CONTINUE TO MONITOR
[2019-09-01 09:00] VITALS: BP 146/70
[2019-09-01] MEDS: PANTOPRAZOLE 40 MG/10 ML VIAL INJ IV SCH (09:10)
[2019-09-01] MEDS: ENOXAPARIN SOD 60 MG/0.6 ML SYRINGE SC SCH (09:10)
[2019-09-01] MEDS: HCTZ 25 MG TAB PO SCH (09:11)
[2019-09-01] MEDS: amLODIPine BESYLATE 5 MG TAB PO SCH (09:11)
[2019-09-01] MEDS: OXYMETAZOLINE HCL 0.05 % NASAL SPRAY 15ML EACHNOSTRI SCH ×2 (09:12→21:33)
--- NOTE | 2019-09-01 10:30 | NUR ---
DR RUFUS HOOPER AT BEDSIDE. REMOVED NIKI DRAIN. PATIENT TOLERATED WELL. BANDAID PLACED OVER INCISION. WILL CONTINUE TO MONITOR
[2019-09-01] MEDS ORDERED: POTASSIUM CHL 20 Meq TABLET PO ONE (11:15)
[2019-09-01 13:00] VITALS: BP 133/67
[2019-09-01] MEDS: Ensure HIGH Protein Chocolate 8oz Bottle PO SCH ×2 (13:45→18:33)
--- NOTE | 2019-09-01 16:35 | NUR ---
assessment Patient is a 88 year old male who is alert and oriented. Per patients Sully prior to admission patient lived home with her and was independent. Per Sully patient is to return home with her on discharge. Per Sully she has been speaking with Dr Vasquez and patient will need home health on discharge. Patient is requesting [facility] home [facility] on discharge. Patients PCP is Dr Vasquez. Patient has no need for DME prior to admission. Patient has an advanced directive and POA. I informed Sully I will continue to monitor and follow up as appropriate. Sully verbalized understanding and agreed to discharge plan home. Addendum: 09/01/19 at 1643 by Blanca DELGADO Amended: Links added.
[2019-09-01 17:00] VITALS: BP 143/59
--- NOTE | 2019-09-01 19:45 | NUR ---
Opening Shift Note Assumed care of patient, awake and alert, oriented x 4, follows directions. On oxygen at 2L via NC with even and unlabored respirations. No S/S of distress/SOB. Patient denies nausea. Patient denies any difficulty urinating, using urinal independently. Surgical incision to right upper abd with everardo clean, dry and intact. Patient reports passing gas. Abd binder on. patient turns independently in bed. Bed in lowest locked position with side rails up x 2 and call light within reach. Instructed on POC and to call for assist PRN, will continue to monitor for changes Q1hr and PRN.
[2019-09-01] MEDS: TEMAZEPAM 15 MG CAP PO PRN (21:31)
[2019-09-01 23:25] VITALS: BP 143/70
[2019-09-02] MEDS: PIPERACILLIN-TAZOB 2.25GM 50 ML IV SCH ×3 (00:23→12:28)
[2019-09-02] MEDS: HYDROmorphone HCL 2 MG/ML VL IV PRN (00:37)
[2019-09-02 05:26] VITALS: BP 142/63
[2019-09-02] MEDS: SODIUM CHLORIDE 0.9% 1,000 ML IV SCH (06:40)
--- NOTE | 2019-09-02 07:14 | NUR ---
Closing Note patient resting in bed on room air with even and labored respirations, no s/s of distress. Bed in lowest locked position with side rails up x 2 and call light within reach, bed alarm on. Endorsed care to day shift RN.
[2019-09-02] MEDS: Ensure HIGH Protein Chocolate 8oz Bottle PO SCH ×3 (08:00→17:50)
[2019-09-02 09:00] VITALS: BP 151/73
[2019-09-02] MEDS: PANTOPRAZOLE 40 MG/10 ML VIAL INJ IV SCH (09:28)
[2019-09-02] MEDS: amLODIPine BESYLATE 5 MG TAB PO SCH (09:29)
[2019-09-02] MEDS: HCTZ 25 MG TAB PO SCH (09:30)
[2019-09-02] MEDS: ENOXAPARIN SOD 60 MG/0.6 ML SYRINGE SC SCH (09:30)
[2019-09-02] MEDS: OXYMETAZOLINE HCL 0.05 % NASAL SPRAY 15ML EACHNOSTRI SCH ×2 (09:31→22:29)
[2019-09-02 12:38] VITALS: BP 140/95
--- NOTE | 2019-09-02 14:22 | NUR ---
DOCTOR LAUREL AT BEDSIDE DISCUSSING POC. PATIENT VERBALIZED UNDERSTANDING AND AGREES WITH POC.
[2019-09-02] MEDS ORDERED: FUROSEMIDE 40 MG/4 ML VIAL IV ONE (14:30)
[2019-09-02 16:58] VITALS: BP 152/67
[2019-09-02 22:00] VITALS: BP 150/62
[2019-09-02] MEDS: TEMAZEPAM 15 MG CAP PO PRN (22:29)
[2019-09-03] MEDS: HYDROmorphone HCL 2 MG/ML VL IV PRN (01:10)
--- NOTE | 2019-09-03 01:46 | NUR ---
patient refused to turn/reposition q 2 hours or prn for skin breakdown prevention, bedsore prevention, pressure ulcer prevention. Educated Abiel on the importance of turning/repositioning q 2 hours or prn and the risks involved of not turning/repositioning q2 hours or prn - patient verbally acknowledge education given, and still refuses to turn/reposition q2 hours or prn. will continue to monitor patient.
[2019-09-03 05:00] VITALS: BP 151/67
--- NOTE | 2019-09-03 05:16 | NUR ---
Advised patient multiple times throughout shift to turn/reposition q 2 hours or prn and patient refused to turn/reposition q 2 hours or prn for skin breakdown prevention, bedsore prevention, pressure ulcer prevention. Educated Abiel on the importance of turning/repositioning q 2 hours or prn and the risks involved of not turning/repositioning q2 hours or prn - patient verbally acknowledge education given, and still refuses to turn/reposition q2 hours or prn. will continue to monitor patient. patient is AOX4.
--- NOTE | 2019-09-03 07:32 | NUR ---
PROVIDED REPORT TO DAY RN. PATIENT HAS NO SIGNS OF DISTRESS OR SOB.
--- NOTE | 2019-09-03 07:41 | NUR ---
Opening Note Assumed pt care from NOC RN. Pt is a/ox4 with no s/s of distress or SOB. Pt is currently sitting upright in bed on 2L NC PRN with no s/s of distress or SOB. Incision to abdomen is open to air and asymptomatic. Discussed POC; pt verbalized understanding. Safety measures maintained with call light within reach, bed in lowest position and side rails up. Will continue to monitor.
[2019-09-03] MEDS: Ensure HIGH Protein Chocolate 8oz Bottle PO SCH ×3 (07:54→18:01)
[2019-09-03] MEDS: PANTOPRAZOLE 40 MG/10 ML VIAL INJ IV SCH (08:43)
[2019-09-03 08:44] VITALS: BP 127/70
[2019-09-03] MEDS: HCTZ 25 MG TAB PO SCH (08:44)
[2019-09-03] MEDS: amLODIPine BESYLATE 5 MG TAB PO SCH (08:44)
[2019-09-03] MEDS: ENOXAPARIN SOD 60 MG/0.6 ML SYRINGE SC SCH (08:44)
[2019-09-03] MEDS: OXYMETAZOLINE HCL 0.05 % NASAL SPRAY 15ML EACHNOSTRI SCH (08:45)
--- NOTE | 2019-09-03 09:21 | NUR ---
Skin Irritation/Rash Noticeable rash noticed to pt's reagan. Pt states that it is "itchy" in nature. No open pustules noted, slightly raise red bumps clustered around his back. Will notify MD. Thoroughly cleaned back and placed z guard to back. Will continue to monitor.
--- NOTE | 2019-09-03 09:24 | NUR ---
Ambulation Pt was able to ambulate to beside chair with minimal/standby assistance. Pt requested to stay in chair for some time. Will continue to monitor and encourage frequent ambulation.
[2019-09-03 12:32] VITALS: BP 138/64
--- NOTE | 2019-09-03 15:21 | NUR ---
Nutrition Followup Notes Wt: 99.8 kg Pt was awake with no family by bedside. Pt is now advanced to regular diet with a fair appetite aeb ave 67% PO intake over 3 meals. Pt stated he does not like the food, maybe d/t dysgeusia caused by medications he takes. Pt but encouraged to increase his PO intake for strength and healing. Pt acknowledged. Noted pt is active for D/C planning. Will continue to monitor PO status, skin status, pertinent labs and weight trends. Will f/u in 3-5 days. Est Energy needs: 0982-2620 kcals (23-25 kcal/kgBW) d/t Stg 4 CKD, Est Protein needs: 55-69 gms/day (0.6-0.75 gm/kgBW) d/t Stg 4 CKD. Will continue to monitor and reassess prn. LABS: BUN 33 H, CREAT 1.87 H, GFR 36 L, ALB 2.0 L. GI: Pt had diarrhea BM on 09/01 per RN doc BS: 20 low risk, incision at site of sx per RN doc. Please refer to wound assessment report for full details. PES: 1) Increased nutrient needs aeb pt is NPO r/t pt with no PO intake 2) Altered nutrition related lab values aeb elev RFTs. low GFR, (Stg 4), hypocalcemia, elev LFTs, mod hypoalbuminemia r/t current medical condition Comments Will continue to closely monitor pertinent labs, PO intake, and skin status prn. Will followup in 3-5 days 1) Consider prostat 1 packet bid. 2) Continue current plan of care
--- NOTE | 2019-09-03 15:31 | NUR ---
D/C Planning Regarding social service consult for home health physical therapy, hospital bed, bedside commode and walker. Faxed clinical information to [facility]. Per Shahbaz with [facility] patient has been accepted and they will service patient within 24-48hrs upon d/c day. Faxed clinical information to [facility]. Per Erika with [facility] patient does not meet criteria for a hospital bed and bed side commode. Per Erika they will deliver walker to bedside upon d/c day.
[2019-09-03 16:36] VITALS: BP 140/67
--- NOTE | 2019-09-03 17:20 | NUR ---
Left Message with Dr Vasquez Pt is requesting an update on POC. Pt further requests that MD see him before d/c; pt states that he has a couple questions before d/c. Left message with . Addendum: 09/03/19 at 1732 by MARTY LOVETT RN RN Called back New orders given. Will implement.
--- NOTE | 2019-09-03 17:44 | NUR ---
D/C Planning- Called in Prescription Called in Prescription, Ambien 5mg PO QHS to [facility], [place] [phone].
--- NOTE | 2019-09-03 17:59 | NUR ---
[facility] Left message with [facility], , regarding status of walker for pt for d/c. Answering staff stated that they would call me back with the provided hospital contact information. Will continue to monitor and continue with d/c. Addendum: 09/03/19 at 1837 by MARTY LOVETT RN RN Pt is requesting that the walker be delivered to pt's home. Called [facility] back, provided them with pt's contact information. They stated that they would reach out to their field office, [place] and he would contact us at the hospital.
[2019-09-03 18:02] VITALS: BP 140/67
--- NOTE | 2019-09-03 19:09 | NUR ---
D/C ENDORSED TO NOC RN ALL QUESTIONS WERE ANSWERED,
--- NOTE | 2019-09-03 20:19 | NUR ---
1999. PATIENT IS DISCHARGED IN STABLE CONDITION. TELE MONITOR#[id number] REMOVED CLEANED AND SENT TO ICU HEART VIA THE TUBE. TWO IV LINES DISCONTINUED AND SITE CLEANED AND STERILE DRESSING APPLIED. PATIENT HAD HIS DISCHARGE INSTRUCTIONS EXPLAINED TO HIM. HE VERBALIZED UNDERSTANDING. HE SIGNED THE NECESSARY PAPERS WHICH WERE HANDED OVER TO THE UNIT TY. HE WAS WHEELED OUT TO THE FRONT ENTRANCE OF THE HOSPITAL AT 2007 WHERE HIS SON RECEIVED HIM. PATIENT VERBALIZED SATISFACTION AND NO CONCERNS WERE RECORDED.
== END 2019-09-03 20:08 | disposition home health service (06) | DRG 424 ==
LOC: EDBD 21:53 → ER 21:55 → TELE 21:56 → CENTRAL 08-22 12:28 → TELE-WESTW 08-25 12:12
PROVIDERS: ADMIT Internal Medicine Cardiovascular Disease; ATTEND Internal Medicine Cardiovascular Disease
PROC: 0FC98ZZ Extirpation of Matter from Common Bile Duct, Via Natural or Artificial Opening Endoscopic (ICD-10-PCS; 2019-08-24)
PROC: BF101ZZ Fluoroscopy of Bile Ducts using Low Osmolar Contrast (ICD-10-PCS; 2019-08-24)
PROC: 0F798ZZ Dilation of Common Bile Duct, Via Natural or Artificial Opening Endoscopic (ICD-10-PCS; 2019-08-24)
PROC: 0DNU0ZZ Release Omentum, Open Approach (ICD-10-PCS; principal; 2019-08-25 09:11)
DX: K80.66 Calculus of gallbladder and bile duct with acute and chronic cholecystitis without obstruction (principal); E87.1 Hypo-osmolality and hyponatremia; N17.9 Acute kidney failure, unspecified; K66.0 Peritoneal adhesions (postprocedural) (postinfection); Z95.0 Presence of cardiac pacemaker; I25.10 Atherosclerotic heart disease of native coronary artery without angina pectoris; R74.8 Abnormal levels of other serum enzymes; I10 Essential (primary) hypertension; Z98.61 Coronary angioplasty status; I25.2 Old myocardial infarction; D64.9 Anemia, unspecified; K44.9 Diaphragmatic hernia without obstruction or gangrene; Z79.82 Long term (current) use of aspirin; Z80.0 Family history of malignant neoplasm of digestive organs; K82.8 Other specified diseases of gallbladder; Z03.818 Encounter for observation for suspected exposure to other biological agents ruled out
CPT/HCPCS: 36415; 71045; 74018; 74177; 76000; 76705; 80048; 80053; 82150; 82247; 83690; 84484; 85025; 85610; 85730; 86850; 86900; 86901; 87493; 93005; 96365; 96375; 96376; 97116; 97163; 97530; C9113; G0378; J0690; J2250; J2405; J2543; J2704

== ENCOUNTER → 2019-10-09 | Outpatient (CLI) | payer MEDICARE | END | disposition home or self-care (01) | LOC: LAB 09:38 | PROVIDERS: ATTEND Internal Medicine Cardiovascular Disease | DX: N40.1 Benign prostatic hyperplasia with lower urinary tract symptoms (principal) | CPT/HCPCS: 84153 ==

== ENCOUNTER → 2020-03-17 | Outpatient (CLI) | payer MEDICARE | END | disposition home or self-care (01) | LOC: LAB 13:31 | PROVIDERS: ATTEND Internal Medicine Cardiovascular Disease | DX: R94.4 Abnormal results of kidney function studies (principal) | CPT/HCPCS: 36415; 82565 ==

== ENCOUNTER → 2020-03-19 | Outpatient (CLI) | payer MEDICARE ==
[~2020-03-19] MED LIST changes: +IODIXANOL 320MG/ML 100ML BTL IV ONE; +SODIUM CHLORIDE 0.9% 500 ML IV ONE
[2020-03-19 09:00] VITALS: BP 131/66
[2020-03-19 11:31] VITALS: BP 148/56
== END | disposition home or self-care (01) ==
LOC: Rad HDHVI 08:52
PROVIDERS: ATTEND Internal Medicine Cardiovascular Disease
DX: I70.1 Atherosclerosis of renal artery (principal); I10 Essential (primary) hypertension; K57.30 Diverticulosis of large intestine without perforation or abscess without bleeding; N40.0 Benign prostatic hyperplasia without lower urinary tract symptoms; Z90.49 Acquired absence of other specified parts of digestive tract
CPT/HCPCS: 74175; 96360; 96361; G0463; J7040; Q9967

== ENCOUNTER → 2020-04-27 | Outpatient (CLI) | payer MEDICARE ==
[~2020-04-27] MED LIST changes: -IODIXANOL 320MG/ML 100ML BTL IV ONE; +IOHEXOL 350 MG/ML 100ML IJ ONE; -SODIUM CHLORIDE 0.9% 500 ML IV ONE
[2020-04-27 09:15] VITALS: BP 178/76
[2020-04-27 09:30] VITALS: BP 167/73
[2020-04-27 12:02] LABS: Basophils # (auto) 0.1 10 ^3/uL (0-0.2); Eosinophils # (auto) 0.3 10 ^3/uL (0-0.8); Eosinophils % (auto) 4.7 % (0.0-7.0); Hemoglobin 10.8 g/dL (13.5-17.5); Lymphocytes # (auto) 1.2 10 ^3/uL (0.4-5.4); Mean Corpuscular Hemoglobin 31.7 pg (28.0-32.0); Mean Corpuscular Hgb Conc. 33.7 g/dL (32.0-36.0); Monocytes # (auto) 0.7 10 ^3/uL (0-1.3); Neutrophils # (auto) 3.9 10 ^3/uL (1.6-8.6); Neutrophils % (auto) 63.3 % (37.0-80.0); Nucleated Red Blood Cells % 0.2 %; Platelet Count (auto) 197 10^3/uL (140-450); Red Cell Distribution Width 13.6 % (11.8-14.3); White Blood Cell 6.2 10^3/uL (4.4-10.8)
[2020-04-27 12:13] LABS: Potassium 4.8 mmol/L (3.5-5.1)
[2020-04-27 12:15] LABS: BUN/Creatinine Ratio 21.1; Calcium 8.9 mg/dL (8.5-10.1)
[2020-04-27 12:33] LABS: INR 0.99 (0.9-1.15); Partial Thromboplastin Time 27.6 sec (23.0-31.2)
== END | disposition home or self-care (01) ==
LOC: Rad HDHVI 09:03
PROVIDERS: ATTEND Internal Medicine Cardiovascular Disease
DX: Z01.812 Encounter for preprocedural laboratory examination (principal); I70.0 Atherosclerosis of aorta; I70.1 Atherosclerosis of renal artery; I10 Essential (primary) hypertension; Z95.0 Presence of cardiac pacemaker
CPT/HCPCS: 36415; 71046; 80048; 85025; 85610; 85730; 93005; G0463

== ENCOUNTER 2020-04-29 07:16 | Inpatient (IN) | payer MEDICARE ==
[~2020-04-29] VITALS: Ht 180.3 cm; Wt 91.5 kg
[~2020-04-29 07:16] MED LIST changes: -IOHEXOL 350 MG/ML 100ML IJ ONE
[2020-04-29] MEDS ORDERED: LIDOCAINE 2%HCL (LOCAL ANESTH.) INJ 20ML MDV ONE ×2 (08:30→09:53)
[2020-04-29] MEDS ORDERED: ANGIOMAX 250 MG VIAL IV ONE (09:41)
[2020-04-29] MEDS ORDERED: SODIUM CHL 0.9% 50 ML ONE (09:41)
[2020-04-29] MEDS ORDERED: MIDAZOLAM HCL 2MG/2ML 2ml VIAL (1mg/ml) ONE (09:41)
[2020-04-29] MEDS ORDERED: fentaNYL CITRATE 100 MCG/2 ML VL ONE (09:41)
[2020-04-29] MEDS ORDERED: NITROGLYCERIN 0.4MG/DOSE SPRAY 4.9GM ONE (09:50)
[2020-04-29] MEDS ORDERED: ACETAMINOPHEN 325 MG TAB PO ONE ×2 (16:15→16:51)
[2020-04-29] MEDS ORDERED: cloNIDine HCL 0.1 MG TAB PO ONE (16:15)
[2020-04-29] MEDS ORDERED: cloNIDine HCL 0.1 MG TAB ONE (16:50)
[2020-04-29] MEDS ORDERED: NITROGLYCERIN 0.4 MG SL TAB SL PRN (19:15)
[2020-04-29] MEDS ORDERED: MORPHINE SULFATE INJECTION 2 MG/ML SYRG IV PRN (19:15)
[2020-04-29] MEDS ORDERED: ACETAMINOPHEN 500 MG TAB PO PRN (19:15)
[2020-04-29 20:18] VITALS: BP 125/64
[2020-04-29] MEDS: TEMAZEPAM 15 MG CAP PO ONE ×2 (21:06→21:11)
[2020-04-29] MEDS: cloNIDine HCL 0.1 MG TAB PO SCH (21:11)
[2020-04-29] MEDS: TIMOLOL MAL 0.5% OPTH(EYE) SOL 5ML EACHEYE SCH (22:00)
[2020-04-29 23:38] VITALS: BP 112/59
[2020-04-30] MEDS: TIMOLOL MAL 0.5% OPTH(EYE) SOL 5ML EACHEYE SCH ×2 (01:23→10:13)
[2020-04-30 08:00] VITALS: BP 144/77
[2020-04-30 09:00] VITALS: BP 144/77
[2020-04-30] MEDS ORDERED: ASPirin-EC 81 mg tab PO SCH (10:00)
[2020-04-30] MEDS ORDERED: CLOPIDOGREL BISULFATE 75 MG TAB PO SCH (10:00)
[2020-04-30] MEDS ORDERED: TURMERIC 1000 MG PO SCH (10:00)
[2020-04-30] MEDS: cloNIDine HCL 0.1 MG TAB PO SCH (10:14)
[2020-04-30 13:00] VITALS: BP 130/84
[2020-04-30 15:31] VITALS: BP 130/84
[2020-04-30] MEDS ORDERED: [UNRECOGNIZED DRUG - REMARK] PO SCH (18:00)
== END 2020-04-30 17:36 | disposition home or self-care (01) | DRG 674 ==
LOC: CATH 07:16 → TELE-CENTR 19:48
PROVIDERS: ADMIT Internal Medicine Cardiovascular Disease; ATTEND Internal Medicine Cardiovascular Disease
PROC: B4101ZZ Fluoroscopy of Abdominal Aorta using Low Osmolar Contrast (ICD-10-PCS; principal; 2020-04-29)
PROC: 047A3DZ Dilation of Left Renal Artery with Intraluminal Device, Percutaneous Approach (ICD-10-PCS; 2020-04-29)
PROC: B4181ZZ Fluoroscopy of Bilateral Renal Arteries using Low Osmolar Contrast (ICD-10-PCS; 2020-04-29)
PROC: B447ZZ3 Ultrasonography of Left Renal Artery, Intravascular (ICD-10-PCS; 2020-04-29)
DX: I70.1 Atherosclerosis of renal artery (principal); I50.32 Chronic diastolic (congestive) heart failure; E78.5 Hyperlipidemia, unspecified; I11.0 Hypertensive heart disease with heart failure; I25.10 Atherosclerotic heart disease of native coronary artery without angina pectoris; I49.5 Sick sinus syndrome; J44.9 Chronic obstructive pulmonary disease, unspecified; M19.90 Unspecified osteoarthritis, unspecified site; N40.0 Benign prostatic hyperplasia without lower urinary tract symptoms; R55 Syncope and collapse; Z20.822 Contact with and (suspected) exposure to COVID-19; Z88.1 Allergy status to other antibiotic agents; Z88.7 Allergy status to serum and vaccine; Z95.0 Presence of cardiac pacemaker
CPT/HCPCS: 36252; 36415; 37236; 37252; 71046; 75625; 80048; 85025; 85610; 85730; 93005; 99152; 99153; G0378; G0463; J2250

== ENCOUNTER → 2020-05-24 | Outpatient (CLI) | payer MEDICARE ==
[2020-05-24] VITALS (7 sets, daily range): BP systolic 182–227; BP diastolic 54–97
[~2020-05-24] MED LIST changes: +cloNIDine HCL 0.1 MG TAB ONE; +cloNIDine HCL 0.1 MG TAB PO ONE
== END | disposition home or self-care (01) ==
LOC: CHF HDHVI 13:48
PROVIDERS: ATTEND Internal Medicine Cardiovascular Disease
DX: I10 Essential (primary) hypertension (principal)
CPT/HCPCS: G0463

== ENCOUNTER → 2020-07-02 | Outpatient (CLI) | payer MEDICARE ==
[~2020-07-02] MED LIST changes: +cefTRIAXone 1GM/50ML D5W 50 ML IV ONE; -cloNIDine HCL 0.1 MG TAB ONE; -cloNIDine HCL 0.1 MG TAB PO ONE
[2020-07-02 10:01] VITALS: BP 162/70
[2020-07-02 10:47] VITALS: BP 135/66
== END | disposition home or self-care (01) ==
LOC: CHF HDHVI 10:09
PROVIDERS: ATTEND Internal Medicine Cardiovascular Disease
DX: J06.9 Acute upper respiratory infection, unspecified (principal); I10 Essential (primary) hypertension
CPT/HCPCS: 96365; G0463; J0696

== ENCOUNTER → 2020-07-07 | Outpatient (CLI) | payer MEDICARE ==
[~2020-07-07] MED LIST changes: -cefTRIAXone 1GM/50ML D5W 50 ML IV ONE
== END | disposition home or self-care (01) ==
LOC: Rad HDHVI 10:47
PROVIDERS: ATTEND Internal Medicine Cardiovascular Disease
DX: R06.02 Shortness of breath (principal); R00.2 Palpitations
CPT/HCPCS: 93306

== ENCOUNTER → 2020-08-04 | Outpatient (CLI) | payer MEDICARE ==
[2020-08-04 11:38] LABS: Basophils # (auto) 0.1 10 ^3/uL (0-0.2); Basophils % (auto) 0.8 % (0.0-2.0); Eosinophils # (auto) 0.1 10 ^3/uL (0-0.8); Eosinophils % (auto) 1.8 % (0.0-7.0); Hematocrit 35.1 % (41.0-53.0); Hemoglobin 11.8 g/dL (13.5-17.5); Lymphocytes # (auto) 1.5 10 ^3/uL (0.4-5.4); Lymphocytes % (auto) 22.6 % (10.0-50.0); Mean Corpuscular Hemoglobin 31.9 pg (28.0-32.0); Mean Corpuscular Hgb Conc. 33.7 g/dL (32.0-36.0); Mean Corpuscular Volume 94.5 fL (80.0-100.0); Monocytes # (auto) 0.8 10 ^3/uL (0-1.3); Monocytes % (auto) 11.4 % (0.0-12.0); Neutrophils # (auto) 4.2 10 ^3/uL (1.6-8.6); Neutrophils % (auto) 63.4 % (37.0-80.0); Nucleated Red Blood Cells % 0.2 %; Platelet Count (auto) 265 10^3/uL (140-450); Red Blood Cells 3.71 10^6/uL (4.5-5.90); Red Cell Distribution Width 13.9 % (11.8-14.3); White Blood Cell 6.6 10^3/uL (4.4-10.8)
[2020-08-04 11:41] LABS: Urine Blood Negative /uL (Negative); Urine Specific Gravity 1.018 (1.001-1.035)
[2020-08-04 11:57] LABS: Potassium 4.5 mmol/L (3.5-5.1)
[2020-08-04 11:59] LABS: Free T4 (Free Thyroxine) 1.25 ng/dL (0.89-1.76); Prostate Specific Antigen 1.15 ng/mL (0.0-4.0)
[2020-08-04 12:11] LABS: Albumin 3.5 g/dL (3.4-5.0); BUN/Creatinine Ratio 24.4; Bilirubin, Total 0.6 mg/dL (0.2-1.0); Total Protein 7.1 g/dL (6.4-8.2)
== END | disposition home or self-care (01) ==
LOC: LAB 08:32
PROVIDERS: ATTEND Internal Medicine Cardiovascular Disease
DX: C61 Malignant neoplasm of prostate (principal); D51.3 Other dietary vitamin B12 deficiency anemia; I10 Essential (primary) hypertension; E11.9 Type 2 diabetes mellitus without complications; E55.9 Vitamin D deficiency, unspecified; D64.9 Anemia, unspecified; R00.2 Palpitations; R53.1 Weakness; R30.0 Dysuria
CPT/HCPCS: 36415; 80053; 80061; 81003; 82306; 82607; 83036; 84153; 84403; 84439; 84443; 85025

== ENCOUNTER → 2021-01-28 | Outpatient (CLI) | payer MEDICARE ==
[~2021-01-28] MED LIST changes: +CLON0.1T PO; +FLAXOIL3 OR; +NIAC500T71 PO; +SACU1TAB PO; +SACU1TAB7 PO
== END | disposition home or self-care (01) ==
LOC: Rad HDHVI 11:04
PROVIDERS: ATTEND Internal Medicine Cardiovascular Disease
DX: M48.061 Spinal stenosis, lumbar region without neurogenic claudication (principal); M51.36 Other intervertebral disc degeneration, lumbar region; M54.50 Low back pain, unspecified
CPT/HCPCS: 72131

== ENCOUNTER → 2021-03-02 | Outpatient (CLI) | payer MEDICARE ==
[2021-03-02 09:17] LABS: Basophils # (auto) 0.1 10 ^3/uL (0-0.2); Eosinophils # (auto) 0.3 10 ^3/uL (0-0.8); Eosinophils % (auto) 5.4 % (0.0-7.0); Hematocrit 33.9 % (41.0-53.0); Hemoglobin 11.3 g/dL (13.5-17.5); Lymphocytes # (auto) 1.4 10 ^3/uL (0.4-5.4); Lymphocytes % (auto) 23.8 % (10.0-50.0); Mean Corpuscular Hemoglobin 31.9 pg (28.0-32.0); Mean Corpuscular Hgb Conc. 33.2 g/dL (32.0-36.0); Mean Corpuscular Volume 96.1 fL (80.0-100.0); Monocytes # (auto) 0.7 10 ^3/uL (0-1.3); Neutrophils # (auto) 3.2 10 ^3/uL (1.6-8.6); Neutrophils % (auto) 56.8 % (37.0-80.0); Nucleated Red Blood Cells % 0.1 %; Red Blood Cells 3.53 10^6/uL (4.5-5.90); White Blood Cell 5.7 10^3/uL (4.4-10.8)
[2021-03-02 09:38] LABS: Free T4 (Free Thyroxine) 1.1 ng/dL (0.89-1.76); Prostate Specific Antigen 1.15 ng/mL (0.0-4.0)
[2021-03-02 09:43] LABS: Potassium 5.1 mmol/L (3.5-5.1)
[2021-03-02 09:49] LABS: Albumin 3.3 g/dL (3.4-5.0); BUN/Creatinine Ratio 17.8; Bilirubin, Total 0.4 mg/dL (0.2-1.0); Calcium 8.9 mg/dL (8.5-10.1)
[2021-03-02 09:56] LABS: Urine Blood Negative /uL (Negative); Urine Specific Gravity 1.014 (1.001-1.035)
== END | disposition home or self-care (01) ==
LOC: LAB 08:24
PROVIDERS: ATTEND Internal Medicine Cardiovascular Disease
DX: C61 Malignant neoplasm of prostate (principal); D51.3 Other dietary vitamin B12 deficiency anemia; I10 Essential (primary) hypertension; E11.9 Type 2 diabetes mellitus without complications; E55.9 Vitamin D deficiency, unspecified; D64.9 Anemia, unspecified; R00.2 Palpitations; R53.1 Weakness; R30.0 Dysuria
CPT/HCPCS: 36415; 80053; 80061; 81003; 82306; 82607; 83036; 84153; 84403; 84439; 84443; 85025

== ENCOUNTER → 2021-03-18 | Outpatient (CLI) | payer MEDICARE | END | disposition home or self-care (01) | LOC: Rad HDHVI 13:45 | PROVIDERS: ATTEND Internal Medicine Cardiovascular Disease | DX: I65.22 Occlusion and stenosis of left carotid artery (principal); I65.21 Occlusion and stenosis of right carotid artery; I70.203 Unspecified atherosclerosis of native arteries of extremities, bilateral legs; I25.10 Atherosclerotic heart disease of native coronary artery without angina pectoris; E78.5 Hyperlipidemia, unspecified | CPT/HCPCS: 93925 ==

== ENCOUNTER 2021-06-16 10:21 | Inpatient (IN) | payer MEDICARE ==
[~2021-06-16] VITALS: Ht 180.3 cm; Wt 91.9 kg
[2021-06-16] MEDS ORDERED: SODIUM CHLORIDE 0.9% 1,000 ML IV ONE (11:30)
[2021-06-16 11:45] LABS: Basophils # (auto) 0.1 10 ^3/uL (0-0.2); Basophils % (auto) 0.8 % (0.0-2.0); Eosinophils # (auto) 0.2 10 ^3/uL (0-0.8); Eosinophils % (auto) 2.9 % (0.0-7.0); Hematocrit 31.5 % (41.0-53.0); Hemoglobin 10.6 g/dL (13.5-17.5); Lymphocytes # (auto) 1.1 10 ^3/uL (0.4-5.4); Lymphocytes % (auto) 16.6 % (10.0-50.0); Mean Corpuscular Hemoglobin 32.2 pg (28.0-32.0); Mean Corpuscular Hgb Conc. 33.6 g/dL (32.0-36.0); Mean Corpuscular Volume 95.7 fL (80.0-100.0); Monocytes # (auto) 0.7 10 ^3/uL (0-1.3); Neutrophils # (auto) 4.7 10 ^3/uL (1.6-8.6); Neutrophils % (auto) 69.7 % (37.0-80.0); Nucleated Red Blood Cells % 0.1 %; Red Blood Cells 3.29 10^6/uL (4.5-5.90); Red Cell Distribution Width 14.1 % (11.8-14.3); White Blood Cell 6.8 10^3/uL (4.4-10.8)
[2021-06-16 12:02] LABS: Albumin 2.9 g/dL (3.4-5.0); Calcium 8.6 mg/dL (8.5-10.1); Potassium 5.5 mmol/L (3.5-5.1)
[2021-06-16 12:08] LABS: BUN/Creatinine Ratio 28.3; Bilirubin, Total 0.4 mg/dL (0.2-1.0); Total Protein 6.6 g/dL (6.4-8.2)
[2021-06-16] MEDS ORDERED: IOHEXOL 350 MG/ML 100ML IJ ONE ×2 (12:40→13:34)
[2021-06-16] MEDS ORDERED: MORPHINE SULFATE INJECTION 2 MG/ML SYRG IV PRN ×2 (16:45→20:15)
[2021-06-16] MEDS ORDERED: CALCIUM GLUC 1,000mg/50ml-NS 50 ML IV ONE (16:45)
[2021-06-16] MEDS ORDERED: FUROSEMIDE 20 MG/2 ML VIAL IV ONE (16:45)
[2021-06-16] MEDS ORDERED: SODIUM ZIRCONIUM CYCL 10 GM PAK PO ONE (16:45)
[2021-06-16] MEDS ORDERED: DEXTROSE (50%) 50ML SYRG IV ONE (16:45)
[2021-06-16] MEDS ORDERED: ALBUTEROL SULF 2.5 MG/0.5ML(0.5%) NEB SOLN NEB ONE (16:45)
[2021-06-16] MEDS ORDERED: InsuLIN REG 1unit/0.01ml Soln (100units/ml) IV ONE (16:45)
[2021-06-16] MEDS ORDERED: SODIUM BICARBONATE 8.4% INJ 50ML SYRINGE IV ONE (16:45)
[2021-06-16] MEDS ORDERED: NITROGLYCERIN 0.4 MG SL TAB SL PRN (16:45)
[2021-06-16] MEDS ORDERED: ONDANSETRON HCL 4 MG/2 ML VIAL IV PRN (20:15)
[2021-06-16] MEDS ORDERED: hydrALAZINE HCL 20 MG/ML VL IV PRN (20:15)
[2021-06-16] MEDS ORDERED: HYDROcodone-ACET 5/325MG TAB PO PRN (20:15)
[2021-06-16] MEDS ORDERED: FAMOTIDINE (10MG/ML) 2ML VL IV ONE (20:30)
[2021-06-16 21:00] VITALS: BP 142/67
[2021-06-16] MEDS: SODIUM ZIRCONIUM CYCL 10 GM PAK PO SCH (22:02)
[2021-06-16] MEDS: ACETAMINOPHEN 325 MG TAB PO PRN (22:03)
[2021-06-16 23:11] LABS: Partial Thromboplastin Time 27.3 sec (23.6-33.0)
[2021-06-17 05:00] VITALS: BP 108/60
[2021-06-17 06:16] LABS: Basophils # (auto) 0.1 10 ^3/uL (0-0.2); Eosinophils # (auto) 0.2 10 ^3/uL (0-0.8); Eosinophils % (auto) 3.6 % (0.0-7.0); Hematocrit 31.5 % (41.0-53.0); Hemoglobin 11.2 g/dL (13.5-17.5); Lymphocytes # (auto) 1.2 10 ^3/uL (0.4-5.4); Lymphocytes % (auto) 21.1 % (10.0-50.0); Mean Corpuscular Hemoglobin 33.2 pg (28.0-32.0); Mean Corpuscular Hgb Conc. 35.4 g/dL (32.0-36.0); Mean Corpuscular Volume 93.8 fL (80.0-100.0); Monocytes # (auto) 0.8 10 ^3/uL (0-1.3); Monocytes % (auto) 13.3 % (0.0-12.0); Neutrophils # (auto) 3.5 10 ^3/uL (1.6-8.6); Red Blood Cells 3.36 10^6/uL (4.5-5.90); Red Cell Distribution Width 14.2 % (11.8-14.3); White Blood Cell 5.7 10^3/uL (4.4-10.8)
[2021-06-17 06:32] LABS: Potassium 4.7 mmol/L (3.5-5.1)
[2021-06-17 06:38] LABS: Albumin 2.9 g/dL (3.4-5.0); BUN/Creatinine Ratio 27.3; Calcium 8.6 mg/dL (8.5-10.1); Magnesium 1.6 mg/dL (1.6-2.6)
[2021-06-17 06:40] LABS: INR 1.03 (0.9-1.15); Partial Thromboplastin Time 27.9 sec (23.6-33.0)
[2021-06-17 06:42] LABS: Bilirubin, Total 0.4 mg/dL (0.2-1.0); Phosphorus 3.3 mg/dL (2.5-4.90)
[2021-06-17] MEDS: SODIUM ZIRCONIUM CYCL 10 GM PAK PO SCH ×3 (06:49→21:21)
[2021-06-17 09:00] VITALS: BP 134/64
[2021-06-17] MEDS: ENOXAPARIN SOD 40 MG/0.4 ML SYRINGE SC SCH (10:04)
[2021-06-17] MEDS: ASPirin 81 mg TAB PO SCH (10:05)
[2021-06-17] MEDS: ACETAMINOPHEN 325 MG TAB PO PRN ×2 (10:05→23:28)
[2021-06-17] MEDS: DOCUSATE SOD 100 MG CAP PO PRN ×2 (10:05→18:46)
[2021-06-17 13:00] VITALS: BP 154/69
[2021-06-17 14:20] LABS: Urine Bacteria NONE SEEN /hpf (None Seen); Urine Blood Negative /uL (Negative); Urine Hyaline Cast FEW /lpf (0 - 2); Urine WBC 3 /hpf (0 - 3)
[2021-06-17 14:22] LABS: Alcohol, Urine < 3.0 mg/dL (0-10); Amphetamine Screen, Urine NEGATIVE (NEGATIVE); Barbiturate Scree,Urine NEGATIVE (NEGATIVE); Benzodiazephine Screen, Urine NEGATIVE (NEGATIVE); Cannabinoid Screen, Urine NEGATIVE (NEGATIVE); Cocaine Screen, Urine NEGATIVE (NEGATIVE); Opiate Scree,Urine NEGATIVE (NEGATIVE); Phencyclidine Screen, Urine NEGATIVE (NEGATIVE)
[2021-06-17 17:00] VITALS: BP 145/73
[2021-06-17] MEDS: FAMOTIDINE (10MG/ML) 2ML VL IV SCH (18:46)
[2021-06-17 22:27] VITALS: BP 128/73
[2021-06-17] MEDS: TEMAZEPAM 15 MG CAP PO PRN (23:29)
[2021-06-18 05:00] VITALS: BP 125/69
[2021-06-18] MEDS: SODIUM ZIRCONIUM CYCL 10 GM PAK PO SCH ×3 (06:08→14:32)
[2021-06-18 08:48] VITALS: BP 147/77
[2021-06-18] MEDS: FAMOTIDINE (10MG/ML) 2ML VL IV SCH ×2 (10:00→10:07)
[2021-06-18] MEDS: ENOXAPARIN SOD 40 MG/0.4 ML SYRINGE SC SCH (10:07)
[2021-06-18] MEDS: ASPirin 81 mg TAB PO SCH (10:07)
[2021-06-18 13:00] VITALS: BP 147/79
[2021-06-18] MEDS: ACETAMINOPHEN 325 MG TAB PO PRN (13:07)
[2021-06-18 14:46] LABS: CRP High Sensitivity 0.513 mg/dL (< 0.3)
[2021-06-18 17:00] VITALS: BP 149/73
[2021-06-18 20:00] VITALS: BP 148/64
[2021-06-18] MEDS: LORazepam 0.5 MG TAB PO PRN (20:14)
[2021-06-18] MEDS: TIMOLOL MAL 0.5% OPTH(EYE) SOL 5ML RIGHTEYE SCH (21:27)
[2021-06-18] MEDS: FAMOTIDINE 20 MG TAB PO SCH (21:33)
[2021-06-18] MEDS: TEMAZEPAM 15 MG CAP PO PRN (21:34)
[2021-06-18 21:44] VITALS: BP 141/73
[2021-06-19 05:00] VITALS: BP 139/70
[2021-06-19 09:00] VITALS: BP 146/82
[2021-06-19] MEDS: ENOXAPARIN SOD 40 MG/0.4 ML SYRINGE SC SCH (10:49)
[2021-06-19] MEDS: ASPirin 81 mg TAB PO SCH (10:49)
[2021-06-19] MEDS: FAMOTIDINE 20 MG TAB PO SCH ×2 (10:49→21:08)
[2021-06-19] MEDS: TIMOLOL MAL 0.5% OPTH(EYE) SOL 5ML RIGHTEYE SCH ×2 (10:50→21:08)
[2021-06-19 11:58] LABS: Basophils # (auto) 0.1 10 ^3/uL (0-0.2); Basophils % (auto) 1.1 % (0.0-2.0); Eosinophils # (auto) 0.4 10 ^3/uL (0-0.8); Eosinophils % (auto) 5.7 % (0.0-7.0); Hematocrit 32.4 % (41.0-53.0); Lymphocytes # (auto) 1.1 10 ^3/uL (0.4-5.4); Lymphocytes % (auto) 18.4 % (10.0-50.0); Mean Corpuscular Hemoglobin 32.3 pg (28.0-32.0); Mean Corpuscular Hgb Conc. 33.9 g/dL (32.0-36.0); Mean Corpuscular Volume 95.2 fL (80.0-100.0); Monocytes # (auto) 0.7 10 ^3/uL (0-1.3); Neutrophils # (auto) 3.9 10 ^3/uL (1.6-8.6); Neutrophils % (auto) 62.8 % (37.0-80.0); Nucleated Red Blood Cells % 0.1 %; Red Cell Distribution Width 14.1 % (11.8-14.3); White Blood Cell 6.2 10^3/uL (4.4-10.8)
[2021-06-19 12:08] LABS: Potassium 4.5 mmol/L (3.5-5.1)
[2021-06-19 12:16] LABS: Albumin 2.9 g/dL (3.4-5.0); BUN/Creatinine Ratio 23.8; Bilirubin, Total 0.3 mg/dL (0.2-1.0); Calcium 8.7 mg/dL (8.5-10.1); Total Protein 6.6 g/dL (6.4-8.2)
[2021-06-19 13:00] VITALS: BP 141/70
[2021-06-19] MEDS: LORazepam 0.5 MG TAB PO PRN (13:58)
[2021-06-19 17:00] VITALS: BP 142/67
[2021-06-19] MEDS: ACETAMINOPHEN 325 MG TAB PO PRN (20:49)
[2021-06-19 22:00] VITALS: BP 152/72
[2021-06-19] MEDS: TEMAZEPAM 15 MG CAP PO PRN (22:13)
[2021-06-20 05:00] VITALS: BP 124/64
[2021-06-20 08:00] VITALS: BP 172/73
[2021-06-20] MEDS: ENOXAPARIN SOD 40 MG/0.4 ML SYRINGE SC SCH (08:23)
[2021-06-20] MEDS: ACETAMINOPHEN 325 MG TAB PO PRN (08:24)
[2021-06-20] MEDS: ASPirin 81 mg TAB PO SCH (08:24)
[2021-06-20] MEDS: TIMOLOL MAL 0.5% OPTH(EYE) SOL 5ML RIGHTEYE SCH (08:28)
[2021-06-20] MEDS ORDERED: SACUBITRIL-VALSARTAN 24mg/26mg TAB PO SCH (10:00)
[2021-06-20] MEDS ORDERED: CLOPIDOGREL BISULFATE 75 MG TAB PO SCH (10:00)
[2021-06-20] MEDS: NIFEdipine ER 30 MG TAB PO SCH ×2 (10:00→10:58)
[2021-06-20 12:00] VITALS: BP 188/82
[2021-06-20] MEDS: LORazepam 0.5 MG TAB PO PRN (12:34)
[2021-06-20 13:00] VITALS: BP 153/70
[2021-06-20 16:00] VITALS: BP 157/58
[2021-06-20 17:20] VITALS: BP 153/70
== END 2021-06-20 18:44 | disposition home or self-care (01) | DRG 312 ==
LOC: ER 10:21 → EDBD 10:21 → TELE 16:40 → TELE-WESTW 20:12
PROVIDERS: ADMIT Hospitalist; ATTEND Internal Medicine Cardiovascular Disease
DX: I95.1 Orthostatic hypotension (principal); E87.5 Hyperkalemia; I12.9 Hypertensive chronic kidney disease with stage 1 through stage 4 chronic kidney disease, or unspecified chronic kidney disease; D64.9 Anemia, unspecified; E86.1 Hypovolemia; G47.33 Obstructive sleep apnea (adult) (pediatric); I25.10 Atherosclerotic heart disease of native coronary artery without angina pectoris; N18.31 Chronic kidney disease, stage 3a; N40.0 Benign prostatic hyperplasia without lower urinary tract symptoms; Z20.822 Contact with and (suspected) exposure to COVID-19; Z85.038 Personal history of other malignant neoplasm of large intestine; Z85.46 Personal history of malignant neoplasm of prostate; Z91.19 Patient's noncompliance with other medical treatment and regimen; Z95.0 Presence of cardiac pacemaker; Z98.61 Coronary angioplasty status; Z88.7 Allergy status to serum and vaccine
CPT/HCPCS: 36415; 70496; 70498; 80053; 80061; 80307; 81001; 82550; 82962; 83036; 83615; 83690; 83735; 83880; 84100; 84132; 84443; 84484; 84550; 85025; 85379; 85610; 85652; 85730; 86141; 87040; 87086; 93005; 94640; 96361; 96374; 96375; 97163; G0378; J1815; J3490

== ENCOUNTER → 2021-10-26 | Outpatient (CLI) | payer MEDICARE | END | disposition home or self-care (01) | LOC: Rad HDHVI 10:50 | PROVIDERS: ATTEND Internal Medicine Cardiovascular Disease | DX: I10 Essential (primary) hypertension (principal); R00.2 Palpitations | CPT/HCPCS: 93306 ==